=== PATIENT | female | born 1965 | race Native Hawaiian/Other Pacific Islander ===

== ENCOUNTER 2021-05-03 11:39 | Outpatient (REF) | payer OTHER, SELFPAY ==
--- NOTE | ~2021-05-03 | MM_ITS ---
EXAMINATION: MM SCREENING DIGITAL BREAST TOMOSYNTHESIS, BILATERAL CLINICAL INFORMATION: Screening. Asymptomatic. Status post bilateral saline breast implants. The lifetime risk of breast cancer based on the Tyrer-Cuzick Model is 7.8%. COMPARISON: Mammography: March 10, 2020 and studies dating back to December 15, 2013 TECHNIQUE: Digital mammography is performed in craniocaudal and mediolateral oblique views along with computer-aided detection (CAD). Digital breast tomosynthesis is performed in implant-displaced craniocaudal and implant-displaced mediolateral oblique views along with computer-aided detection (CAD). Synthesized 2D images are generated from the tomosynthesis. FINDINGS: The breasts are extremely dense, which lowers the sensitivity of mammography (ACR BI-RADS breast composition Category d). There are no significant masses, abnormal calcifications, or other abnormalities. MM/MM tomosynthesis screen imp BI IMPRESSION: There are no significant changes from prior study. ASSESSMENT: BI-RADS 1: Negative RECOMMENDATION: Routine annual mammography screening. This patient's information was entered into a reminder system with a target due date for their next mammogram.
== END 2021-05-03 11:40 | disposition home or self-care (01) ==
LOC: HO.MAMMO 11:39
PROVIDERS: PCP Internal Medicine; Visit Provider Internal Medicine
DX: Z12.31 Encounter for screening mammogram for malignant neoplasm of breast (principal)
CPT/HCPCS: 77063; 77067

== ENCOUNTER 2021-06-09 15:03 | Emergency (ER) | payer OTHER, SELFPAY ==
--- NOTE | ~2021-06-09 | CT_ITS ---
EXAMINATION: CT ABDOMEN AND PELVIS WITHOUT CONTRAST CLINICAL INFORMATION: Right lower abdominal pain COMPARISON: Previous CT of the abdomen and pelvis December 2013 and pelvic ultrasound most recent from the same date TECHNIQUE: Multidetector volumetric imaging was performed from the superior aspect of the liver through the pubic symphysis. Sagittal and coronal reformatted images were obtained on the technologist's workstation. This CT examination was performed using dose optimization techniques as appropriate, variously including the following: *Automated exposure control *Adjustment of mA and/or kV according to patient size (this includes techniques or standardized protocols for targeted exams where dose is matched to indication/reason for exam; i.e. extremities or head) *Use of iterative reconstruction technique DLP: 289 mGy-cm FINDINGS: LUNG BASES: There is a 3 mm calcified left lower lobe nodule that is stable. The lung bases are otherwise clear. There are bilateral breast implants. LIVER, GALLBLADDER, AND BILIARY TREE: The liver is normal in size, shape, and attenuation. No focal hepatic lesion or biliary ductal dilatation is present. The gallbladder is unremarkable with no evidence of radiopaque gallstones, gallbladder wall thickening, or obvious pericholecystic inflammatory changes. PANCREAS: Unremarkable. SPLEEN: Unremarkable. ADRENAL GLANDS: Unremarkable. KIDNEYS AND URETERS: There is a 1 cm low-attenuation lesion in the anterior right kidney axial image 36 series 3. There is a 1 cm low-attenuation lesion in the upper pole of the left kidney measuring 9 mm axial image 17 series 3. There is a 7 mm low-attenuation lesion in the lower pole of the left kidney axial image 29 series 3. There is a 5 mm low-attenuation lesion exophytic to the lower pole of the left kidney axial image 31 series 3. These likely represent cysts. No imaging follow-up needed. The kidneys are otherwise unremarkable. BLADDER: Unremarkable. GASTROINTESTINAL TRACT: There is stool throughout the colon suggestive of constipation. The small and large bowel is otherwise unremarkable. The base of the appendix is normal in size measuring 6 to 7 mm in diameter and contains air. The tip of the appendix is minimally dilated measuring 9 mm. There is question of fluid seen in the tip of the appendix versus a small amount of fluid adjacent to the tip of the appendix axial image 49 and 50 series 3, coronal reconstructed image 26 and sagittal reconstructed image 58. Early tip appendicitis cannot be excluded and clinical correlation is recommended. ABDOMINAL WALL: No significant hernia is appreciated. LYMPH NODES: There is shotty small bowel mesentery lymphadenopathy. No enlarged lymph nodes are seen. VASCULAR: Unremarkable. PELVIC VISCERA: Unremarkable. An IUD is no longer seen. OSSEOUS STRUCTURES: Unremarkable. CT/CT abdomen pelvis wo con IMPRESSION: Stool throughout the colon suggestive of constipation. The base of the appendix is normal. The tip of the appendix is minimally dilated measuring 9 mm and there is question of fluid in the tip of the appendix versus a small amount of fluid adjacent to the tip of the appendix. Early tip appendicitis cannot be excluded and clinical correlation is recommended. Probable bilateral renal cysts. Stable 3 mm noncalcified left lower lobe pulmonary nodule.
[2021-06-09 15:37] VITALS: BP 121/72; PULSE 88; RESP 16; TEMP 36.8; O2SAT 100; BMI 18.7
--- NOTE | 2021-06-09 18:35 | ED.ABDPAIN ---
HPI - Abdominal Pain General Chief Complaint: Abdominal Pain Stated Complaint: lower abd pain Time Seen by Provider: 06/09/21 18:32 Source: patient Mode of arrival: ambulatory Limitations: no limitations History of Present Illness HPI narrative: 55-year-old female came in for evaluation of right lower abdominal pain and right groin pain and right thigh pain. Symptoms started about 6 weeks ago, symptoms are constant for 6 weeks and progressively getting worse, described it as a dull aching pain localized to the right lower quadrant radiating down to the right groin and right upper thigh area, pain is severe 10 out of 10. Movement or walking make the pain worse, nothing relieving the pain, no other associated symptoms no fever, no chills, no history of trauma. Related Data Home Medications Medication Instructions Recorded Confirmed fluoxetine 20 mg capsule 20 mg PO DAILY 07/22/20 10/01/20 albuterol sulfate 90 mcg/actuation 1 - 2 puff PO Q4-6H PRN 10/01/20 10/01/20 aerosol inhaler Allergies Allergy/AdvReac Type Severity Reaction Status Date / Time latex [LATEX] Allergy Unknown DIFF Verified 10/01/20 10:42 BREATHING peanut Allergy Anaphylaxis Verified 06/09/21 15:40 Review of Systems Review of Systems All other systems are reviewed and are negative Constitutional: Reports as per HPI and Reports no additional constitutional complaints Eyes: Reports as per HPI and Reports no additional eye complaints Reports system reviewed and no additional complaints, except as documented Cardiovascular: Reports as per HPI and Reports no additional cardiovascular complaints Respiratory: Reports as per HPI and Reports no additional respiratory complaints Gastrointestinal: Reports as per HPI and Reports no additional gastrointestinal complaints Genitourinary: Reports no additional female genitourinary complaints Musculoskeletal: Reports no additional musculoskeletal complaints Skin/Breast: Reports system reviewed and no additional complaints, except as docu Psychiatric: Reports no additional psychiatric complaints Endocrine: Reports no additional endocrine complaints Hematologic/Lymphatic: Reports no additional hematologic/lymphatic complaints Allergic/Immunologic: Reports no additional allergic/immunologic complaints Reports system reviewed and no additional complaints, except as documented and Reports Abnormal speech present Physical Exam Vital Signs: Vital Signs: Last Vital Signs Temp 98 F 06/09/21 19:34 Pulse 80 06/09/21 19:34 Resp 18 06/09/21 19:34 BP 138/86 06/09/21 19:34 Pulse Ox 100 06/09/21 19:34 Body Mass Index 18.7 Vital signs have been reviewed as appeared to be correct. Blood pressure normal. Heart rate normal. Respiration rate normal. Temperature normal. Oxygen saturation normal. Appearance: Alert. Oriented X3. No acute distress. Head: Normal external exam. Normocephalic. Atraumatic. No Johnson signs noted. No raccoon eyes noted Eyes: PERRLA. EOMI. Conjunctiva and sclera normal. Eyelids normal. ENT: TM's Normal. Pharynx normal. Uvula midline. Moist mucous membranes. No trismus noted. No drooling noted. No muffled voice noted. Neck: Normal inspection. Neck supple. FROM. No adenopathy. Thyroid Normal. No meningeal signs. No neck mass noted. CVS: Normal heart rate and rhythm. Heart sound normal. No murmurs noted. Pulses normal throughout. Respiratory: No respiratory distress. Painless inspiration. Breath sounds normal. No wheezes/rales/rhonchi noted. Chest nontender. No accessory muscle usage noted or decreased air movement noted. Abdomen: Soft , mild right lower quadrant tenderness no rebound tenderness no guarding. Mild tenderness over iliac ligament, increased pain with moving right leg. sounds normal in all 4 quadrants. No distention noted. No organomegaly noted. No visible injury noted. Back: No CVA tenderness. Full range of motion noted. Skin: Skin warm and dry. Normal skin color. Normal skin turgor. No rashes/lesions/lacerations noted. Extremities: Tenderness over right upper thigh, no palpable mass. Neuro: Oriented X 3. Cranial nerve exam: II-XII are grossly intact No motor deficit. No sensory deficit. Reflexes normal. Course Course Course Narrative: Assessment and plan. 55-year-old female came in with 6 weeks history of right lower quadrant/right inguinal/right upper thigh pain. Physical exam is more consistent with mild right lower quadrant tenderness and tenderness over right illio- inguinal ligament strain. CT cannot rule out acute appendicitis entirely because slight dilatation of the tip of the appendix. CT was discussed and reviewed with Dr. Solorio who agreed on the plan to discharge the patient home and he will see her in the office tomorrow. The plan was discussed with the patient who agreed on the plan. MDM - Abdominal Pain Medical Records Attestation: I reviewed the patient's medical records. Lab Data Attestation: I reviewed the patient's lab results. Result diagrams: 06/09/21 19:02 06/09/21 19:02 Labs: Lab Results 06/09/21 06/09/21 06/09/21 Range/Units 19:02 19:02 19:02 WBC 6.7 (4.8-10.8) X10*3/uL RBC 4.16 L (4.20-5.50) X10*6/uL Hgb 12.6 (12.0-16.0) g/dl Hct 36.7 L (37-47) % MCV 88.2 (80-98) fL MCH 30.3 (27.0-33.0) pg MCHC 34.3 (31.0-35.0) g/dl RDW 12.3 (11.0-16.0) % Plt Count 269 (160-400) X10*3/uL MPV 9.2 L (9.4-12.3) fL Immature Gran % (Auto) 0.1 (0.0-0.4) % Neut % (Auto) 44.3 L (45-73) % Lymph % (Auto) 42.2 H (20-40) % [place] % (Auto) 8.8 (2-11) % Eos % (Auto) 4.5 H (0-4) % Baso % (Auto) 0.1 (0-2) % Lymph # (Auto) 2.8 (1.2-4.9) X10*3/uL [place] # (Auto) 0.6 (0.1-1.2) X10*3/uL Eos # (Auto) 0.3 (0.0-0.4) X10*3/uL Baso # (Auto) 0.0 (0.0-0.2) X10*3/uL Abs Immat Gran (auto) 0.01 (0.00-0.03) X10*3/uL Absolute Neuts (auto) 3.0 (2.0-8.3) X10*3/uL Absolute Nucleated RBC 0.000 (0.0-0.012) X10*3/uL Nucleated RBC % (auto) 0.0 (0.0-0.2) /100WBC D-Dimer < 200 NG/ML Sodium 140 (135-145) mmol/L Potassium 4.1 (3.3-5.1) mmol/L Chloride 106 (96-108) mmol/L Carbon Dioxide 28 (22-29) mmol/L Anion Gap 10 L (12-20) BUN 15 (9-16) mg/dL Creatinine 0.79 (0.5-1.4) mg/dL Estim Creat Clear Calc 64.3 Estimated GFR > 60 Random Glucose 106 (60-115) mg/dL Calcium 9.4 (8.4-10.2) mg/dL Total Bilirubin 0.3 (0.0-1.0) mg/dL Direct Bilirubin < 0.2 (0.0-0.5) mg/dL AST 16 (5-31) U/L ALT 9 (0-31) U/L Alkaline Phosphatase 60 (39-117) U/L Total Creatine Kinase 70 (26-140) U/L Total Protein 6.8 (6.5-8.0) g/dL Albumin 3.9 (3.5-5.0) g/dL Lipase 54 (8-78) U/L Urine Color Urine Appearance Urine pH (5.0-8.0) Ur Specific [place] (1.005-1.025) Urine Protein (NEG-TRACE) MG/DL Urine Glucose (UA) (NEG) MG/DL Urine Ketones (NEG) MG/DL Urine Blood (NEG) Urine Nitrite (NEG) Ur Leukocyte Esterase (NEG) 06/09/21 Range/Units 19:36 WBC (4.8-10.8) X10*3/uL RBC (4.20-5.50) X10*6/uL Hgb (12.0-16.0) g/dl Hct (37-47) % MCV (80-98) fL MCH (27.0-33.0) pg MCHC (31.0-35.0) g/dl RDW (11.0-16.0) % Plt Count (160-400) X10*3/uL MPV (9.4-12.3) fL Immature Gran % (Auto) (0.0-0.4) % Neut % (Auto) (45-73) % Lymph % (Auto) (20-40) % [place] % (Auto) (2-11) % Eos % (Auto) (0-4) % Baso % (Auto) (0-2) % Lymph # (Auto) (1.2-4.9) X10*3/uL [place] # (Auto) (0.1-1.2) X10*3/uL Eos # (Auto) (0.0-0.4) X10*3/uL Baso # (Auto) (0.0-0.2) X10*3/uL Abs Immat Gran (auto) (0.00-0.03) X10*3/uL Absolute Neuts (auto) (2.0-8.3) X10*3/uL Absolute Nucleated RBC (0.0-0.012) X10*3/uL Nucleated RBC % (auto) (0.0-0.2) /100WBC D-Dimer NG/ML Sodium (135-145) mmol/L Potassium (3.3-5.1) mmol/L Chloride (96-108) mmol/L Carbon Dioxide (22-29) mmol/L Anion Gap (12-20) BUN (9-16) mg/dL Creatinine (0.5-1.4) mg/dL Estim Creat Clear Calc Estimated GFR Random Glucose (60-115) mg/dL Calcium (8.4-10.2) mg/dL Total Bilirubin (0.0-1.0) mg/dL Direct Bilirubin (0.0-0.5) mg/dL AST (5-31) U/L ALT (0-31) U/L Alkaline Phosphatase (39-117) U/L Total Creatine Kinase (26-140) U/L Total Protein (6.5-8.0) g/dL Albumin (3.5-5.0) g/dL Lipase (8-78) U/L Urine Color YELLOW Urine Appearance HAZY Urine pH 7.0 (5.0-8.0) Ur Specific [place] 1.015 (1.005-1.025) Urine Protein NEG (NEG-TRACE) MG/DL Urine Glucose (UA) NEG (NEG) MG/DL Urine Ketones NEG (NEG) MG/DL Urine Blood NEG (NEG) Urine Nitrite NEG (NEG) Ur Leukocyte Esterase NEG (NEG) Imaging Data CT scan - abdomen: Radiologist's impression: Stool throughout the colon suggestive of constipation. The base of the appendix is normal. The tip of the appendix is minimally dilated measuring 9 mm and there is question of fluid in the tip of the appendix versus a small amount of fluid adjacent to the tip of the appendix. Early tip appendicitis cannot be excluded and clinical correlation is recommended. Probable bilateral renal cysts. Stable 3 mm noncalcified left lower lobe pulmonary nodule. .? Discharge Plan Discharge Clinical Impression: Abdominal pain Qualifiers: Abdominal location: right lower quadrant Qualified Code(s): R10.31 - Right lower quadrant pain Ilio-inguinal strain Qualifiers: Encounter type: initial encounter Qualified Code(s): S39.011A - Strain of muscle, fascia and tendon of abdomen, initial encounter Patient Disposition: Home, Self-Care Instructions: Muscle Strain (ED), Abdominal Pain (ED) Prescriptions: No Action albuterol sulfate 90 mcg/actuation HFA aerosol inhaler 1 - 2 puff PO Q4-6H PRN (Reason: dyspnea) RF: 0 fluoxetine 20 mg capsule 20 mg PO DAILY RF: 0 Referrals: Mukund Neal MD [Primary Care Provider] - 2 days Jc Solorio MD [Physician] - 1 day Stand Alone Forms: Work/School Release [facility] Past Medical History Medical History Anxiety Surgical History No pertinent past surgical history Family History Family History Father No problems noted. Mother No problems noted. Social History Social History Alcohol intake: never Advance Directives: No Advance Directives Information Provided: No Patient : No
[2021-06-09 19:10] LABS: MANUAL DIFF FLAG NO
[2021-06-09 19:11] LABS: Basophils Percent Auto 0.1 % (0-2); Eosinophils Absolute Auto 0.3 X10*3/uL (0.0-0.4); Eosinophils Percent Auto 4.5 % (0-4); Hematocrit 36.7 % (37-47); Hemoglobin 12.6 g/dl (12.0-16.0); Imm Gran Abs Auto 0.01 X10*3/uL (0.00-0.03); Imm Gran Pct Auto 0.1 % (0.0-0.4); Lymphocytes Absolute Auto 2.8 X10*3/uL (1.2-4.9); Lymphocytes Percent Auto 42.2 % (20-40); Mean Corpuscular HGB Conc 34.3 g/dl (31.0-35.0); Mean Corpuscular Hemoglobin 30.3 pg (27.0-33.0); Mean Corpuscular Volume 88.2 fL (80-98); Mean Platelet Volume 9.2 fL (9.4-12.3); Monocytes Absolute Auto 0.6 X10*3/uL (0.1-1.2); Monocytes Percent Auto 8.8 % (2-11); Neutrophils Percent Auto 44.3 % (45-73); Platelet Count 269 X10*3/uL (160-400); Red Blood Count 4.16 X10*6/uL (4.20-5.50); Red Cell Distribution Width 12.3 % (11.0-16.0); White Blood Count 6.7 X10*3/uL (4.8-10.8)
[2021-06-09 19:20] LABS: D Dimer < 200 NG/ML
[2021-06-09 19:28] LABS: Alanine Aminotransferase 9 U/L (0-31); Albumin Level 3.9 g/dL (3.5-5.0); Alkaline Phosphatase 60 U/L (39-117); Anion Gap 10 (12-20); Aspartate Amino Transferase 16 U/L (5-31); Bilirubin Direct < 0.2 mg/dL (0.0-0.5); Bilirubin Total 0.3 mg/dL (0.0-1.0); Blood Urea Nitrogen 15 mg/dL (9-16); Calcium 9.4 mg/dL (8.4-10.2); Carbon Dioxide 28 mmol/L (22-29); Chloride 106 mmol/L (96-108); Creatinine Clr Calc Pharmacy 64.3; Estimated Glomerular Filt Rate > 60; Glucose Random 106 mg/dL (60-115); Lipase 54 U/L (8-78); Potassium 4.1 mmol/L (3.3-5.1); Sodium 140 mmol/L (135-145); Total Protein 6.8 g/dL (6.5-8.0)
[2021-06-09 19:34] VITALS: BP 138/86; PULSE 80; RESP 18; TEMP 36.6; O2SAT 100
[2021-06-09 19:48] LABS: Appearance Urine HAZY; Color Urine YELLOW; Glucose Urine UA NEG (NEG); Leukocyte Esterase Urine NEG (NEG); Nitrite Urine NEG (NEG); Specific Gravity - Urine 1.015 (1.005-1.025); Urine Blood NEG (NEG); Urine Ketones NEG (NEG); Urine Protein NEG (NEG-TRACE)
== END 2021-06-09 21:04 | disposition home or self-care (01) ==
PROVIDERS: Emergency Provider Emergency Medicine; PCP Family Medicine
DX: S39.011A Strain of muscle, fascia and tendon of abdomen, initial encounter (principal); R10.31 Right lower quadrant pain; X58.XXXA Exposure to other specified factors, initial encounter; Y93.9 Activity, unspecified; Y92.9 Unspecified place or not applicable; Y99.9 Unspecified external cause status; Z79.899 Other long term (current) drug therapy
CPT/HCPCS: 36415; 74176; 80048; 80076; 81003; 82550; 83690; 85025; 85379; 99283; 99284

== ENCOUNTER → 2021-06-10 10:36 | Outpatient (BNVA) | payer OTHER, SELFPAY | PROVIDERS: PCP Family Medicine; Visit Provider Surgery ==

== ENCOUNTER 2021-06-24 11:44 | Outpatient (RCR) | payer OTHER, SELFPAY ==
--- NOTE | 2021-06-24 13:47 | MHC.PT.EP ---
[facility] [place] Office [place] Office [place] Office [address] Dale James [address] [phone] F: [phone] F: [phone] F: [phone] F: [phone] Physical Therapy Plan of Care Date of Evaluation: Date of Surgery: Diagnosis: Unspecified injury of abdomen, initial encounter Assessment: Pt is a pleasant 55yo F who presents to PT with R groin/thigh pain. She injured her leg while attempting to prevent a fall at work by slowly lowering a pt down her R leg to the floor. Her pain has improved some over the past few weeks however she presents today with current impairments in pain, decreased quad/hamstring/hip/glute strength, soft tissue restrictions throughout R quad, balance, and gait. She is limited functionally by getting in/out of the tub, prolonged walking, sitting to standing, and stair navigation. Her signs and symptoms may be consistent with a R quad strain. She is an excellent candidate for skilled PT services to address current impairments in order to facilitate return to OF. She will be seen 1x/week for 5 weeks and will be reassessed at that time. Frequency and Duration: The patient will be seen 1x/week for 5 weeks Short Term Goals: Pt will be I with HEP to promote self management of symptoms Pt will improve R hamstring to [employer] W[employer] Goals: Pt will improve R quad strength by at least 1 grade to assist with stair navigation Pt will ascend/descend 1 flight of stairs with reciprocal gait pattern with pain < 2 / 10 Pt will demonstrate improvements in functional mobility as evidenced by statistically significant improvement in LEFI outcome measure Treatment Plan: Modalities to reduce pain, spasms and effusion. Manual therapy to restore motion and function. Therapeutic exercise to improve strength and flexibility. Neuromuscular re-education for posture and balance. Therapeutic activities to return to functional activities of daily living. Electronically signed by: Merary Nguyen, PT, DPT Please sign and return to therapist. Thank you for your referral.
--- NOTE | 2021-07-26 12:50 | MHC.PT.DC ---
[facility] [place] Office [place] Office [place] Office [address] Dale James [address] [phone] F: [phone] F: [phone] F: [phone] F: [phone] Physical Therapy Discharge Report Diagnosis: Unspecified injury of abdomen, initial encounter Date of Surgery: Date of Evaluation: 06/24/21 Date of Discharge: 07/26/21 Treatments to Date: 1 Cancellations to Date: 2 No Shows to Date: Discharge Status: Patient Elected to Stop Discharge Summary: Pt was evaluated on 06/24/21. She cancelled her remaining appointments and self discharged from PT as she report she is feeling good and is continuing her HEP from initial PT evaluation. Pt is being D/C from skilled PT services at this time. Pt current level of function unknown at this time. Electronically signed by: Merary Nguyen, PT, DPT Please sign and return to therapist. Thank you for your referral.
== END 2021-07-26 12:50 | disposition home or self-care (01) ==
LOC: HO.PT 11:44
PROVIDERS: PCP Internal Medicine; Visit Provider Internal Medicine
DX: S39.91XD Unspecified injury of abdomen, subsequent encounter (principal)
CPT/HCPCS: 97110; 97161

== ENCOUNTER 2023-01-08 12:06 | Outpatient (REF) | payer OTHER, SELFPAY ==
--- NOTE | ~2023-01-08 | XR_ITS ---
EXAMINATION: XR FINGER, LEFT CLINICAL INFORMATION: Pain COMPARISON: None available. TECHNIQUE: Three views of the left fifth finger. FINDINGS: The bones and soft tissues are normal. No fracture. Alignment is anatomic. Joint spaces are maintained. XR/XR finger LT min 2V IMPRESSION: Normal finger radiographs.
== END 2023-01-08 12:07 | disposition home or self-care (01) ==
LOC: HO.HMGCLDS 12:06
PROVIDERS: PCP Internal Medicine; Visit Provider Nurse Practitioner Family
DX: M79.645 Pain in left finger(s) (principal)
CPT/HCPCS: 73140

== ENCOUNTER → 2023-01-16 14:38 | Outpatient (BNVA) | payer OTHER, SELFPAY | PROVIDERS: PCP Internal Medicine; Visit Provider Orthopaedic Surgery ==

== ENCOUNTER → 2023-02-14 12:30 | Outpatient (BNVA) | payer OTHER, SELFPAY | PROVIDERS: PCP Internal Medicine; Visit Provider Orthopaedic Surgery ==

== ENCOUNTER 2023-03-07 13:19 | Outpatient (AMB) | payer OTHER, SELFPAY ==
--- NOTE | 2023-03-07 13:24 | MHC.PC.OV ---
Vital Signs 03/07/23 13:25 Height 5 ft 4.5 in Weight 113 lb 6 oz BMI 19.2 BP 110/76 Blood Pressure Location Lt brachial Position Sitting Pulse 78 Pulse Source Pulse Oximeter Pulse Oximetry (%) 98 Oxygen Delivery Method Room Air Intake Visit Reasons: ringing in ear Intake Note: Patient is here today for ringing and echo in right ear. 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 Accompanied by: Self / Same As Patient Allergies latex [LATEX] Allergy (Unknown, Verified 03/07/23 13:25) DIFF BREATHING Medication List - Last Reconciled 03/07/23 by Neto Bhandari MD albuterol sulfate 2.5 mg (3 mL) inhalation Q4-6H PRN miscellaneous medical supply 2 ea miscellaneous .QIS Tobacco use date assessed: 03/07/23 Dental Screening Dental Screen Date: 03/07/23 Did you have a dental visit in the last 12 months?: No Did you have a dental problem in the last 6 months where you did not have access to dental care?: No Was dental information given to patient?: Patient has dentist HPI ringing in ear HPI Details bilat ear pain for a week [facility] Medical History Anxiety Right lower quadrant pain Surgical History No pertinent past surgical history Family History Father No problems noted. Mother No problems noted. 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 Bryan Marx, Ann Calero, Ankur Kaur and colleagues, with an educational faby from [employer]. Review of Systems Const Denies chills, Denies headache(s) and Denies weight loss ENT Denies headache(s) Card Denies chest pain, Denies syncope, Denies irregular heart rhythm and Denies dyspnea Resp Denies chest congestion, Denies cough and Denies dyspnea GI Denies abdominal pain, Denies change in stool character, Denies nausea and Denies vomiting Musc Denies deformity and Denies joint swelling Neuro Denies syncope and Denies headache(s) Physical exam (Primary Care) Vital Signs: Last Vital Signs Pulse 78 03/07/23 13:25 BP 110/76 03/07/23 13:25 Pulse Ox 98 03/07/23 13:25 Oxygen Delivery Method Room Air 03/07/23 13:25 BMI result Body Mass Index 19.2 Tobacco/Smoking Status: Tobacco use Status Tobacco use date assessed 03/07/23 03/07/23 13:29 Patient Tobacco Use Status Never used Tobacco 03/07/23 13:29 e-Cigarette/Vaping Use Never Used 03/07/23 13:29 Thrive Assessment: Date of Thrive Assessment Date Thrive assessed 08/30/22 03/07/23 13:29 Const General: cooperative, healthy appearing and no acute distress HENMT Head: Yes normal to inspection Ears: hearing grossly normal bilaterally, external ears normal and TM's normal bilaterally Eyes General: appearance normal, both eyes and all related structures Neck Neck: Yes normal visual inspection Assessment and Plan Assessment & Plan (1) Otalgia of both ears: Code(s): H92.03 - Otalgia, bilateral Plan: rx Medications: New azithromycin take 500 mg today (day 1), then 250 mg for 4 days (days 2-5) PO 6 tabs 0RF Coding Level of Care Code Est Pt Level 3 (50906) Diagnoses Otalgia of both ears H92.03
[2023-03-07 13:25] VITALS: BP 110/76; PULSE 78; O2SAT 98; BMI 19.2
== END 2023-03-07 13:34 | disposition home or self-care (01) ==
PROVIDERS: PCP Internal Medicine; Visit Provider Internal Medicine
DX: H92.03 Otalgia, bilateral (principal)
CPT/HCPCS: 99213

== ENCOUNTER 2023-04-10 09:25 | Outpatient (AMB) | payer OTHER, SELFPAY ==
--- NOTE | 2023-04-10 09:50 | A.OFFVIS_ITS ---
Intake Vital Signs 04/10/23 09:51 Height 5 ft 4.5 in Weight 113 lb BMI 19.1 Intake Visit Reasons: OV-LT 4th finger ruptured distal extensor tendon Intake Note: Tejal 57 yr old female presents today for her follow up visit for her Left Small finger mallet deformity DOI: 01/08/23. Patient states she no longer has pain just stiffness in the pinky DIP joint. Allergies latex [LATEX] Allergy (Unknown, Verified 04/10/23 09:52) DIFF BREATHING HPI OV-LT 4th finger ruptured distal extensor tendon HPI Details Tejal is a 57 year old right hand dominant woman who returns for a follow-up of her left small finger mallet deformity, DOI: 01/08/23. She presents today saying she no longer has any pain in her small finger. She does continue to have stiffness in her small finger. She says she has been wearing her splint most of the time for the last 3 months. 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 [facility] Medical History Anxiety Right lower quadrant pain Surgical History No pertinent past surgical history Family History Father No problems noted. Mother No problems noted. Social History Housing: Apartment Alcohol intake: never Patient Tobacco Use Status: Never used Tobacco e-Cigarette/Vaping Use: Never Used Second Hand Smoke Exposure: No service: No Current occupational status: employed Current occupation: [employer] Current occupational exposures/hazards: No Cognitive needs: No Hearing needs: No Vision needs: Yes (glasses) Review of Systems Const All systems reviewed & are unremarkable except as noted in HPI and below Physical Exam Vital Signs: BMI result Body Mass Index 19.1 Const General: cooperative, healthy appearing and no acute distress Orientation/consciousness: patient oriented x3 HEENT Head: Yes normocephalic and Yes atraumatic Eyes EOM: EOMs intact bilaterally Resp Effort & Inspection: normal respiratory effort and able to speak in complete sentences Cardio Jugular venous distension: no JVD Skin General skin exam: turgor normal Rashes: no rashes Neuro General: patient oriented x3 Extrem Other: Evaluation of Left Upper Extremity: The patient is alert, oriented, and in no acute distress Neuro: Median, Ulnar, Radial nerves motor and sensory intact and sensation is normal to the tips of all digits Vascular: Cap refill brisk ROM: She has some small finger PIP joint stiffness, initially she only had ~75 degrees of flexion of the small finger PIP joint compared to ~120 degrees flexion at ring finger PIP joint We worked on ROM exercises today in clinic, before leaving she could bring the tip of her finger to her palm I instructed her to not push across the DIP joint for now Good MCP joint flexion DIP joint non-tender, full extension She was able to demonstrate some active DIP joint flexion Psych Appearance: grossly normal Affect: normal affect Attitude: cooperative Assessment & Plan Assessment & Plan (1) 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 Left Small finger mallet deformity DOI: 01/08/23 I educated her about this condition. She appears to be doing well She has been managing this with splinting since her appointment on 01/16/23 She will discontinue her finger splint at this time She will work on gentle finger ROM exercises at home, primarily of the small finger PIP joint. I demonstrated exercises today in clinic for her to perform She should perform these 20x daily. I instructed her to not push across the DIP joint for now If she has difficulty with her ROM she may contact the clinic for a referral to OT hand therapy She can follow up prn Scribed for Chioma Mitchell MD by [facility], on 04/10/23 at 10:20 AM, EST. 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
[2023-04-10 09:51] VITALS: BMI 19.1
== END 2023-04-10 10:28 | disposition home or self-care (01) ==
PROVIDERS: PCP Internal Medicine; Visit Provider Orthopaedic Surgery
DX: M20.012 Mallet finger of left finger(s) (principal)
CPT/HCPCS: 99213

== ENCOUNTER → 2023-04-10 09:25 | Outpatient (BNVA) | payer OTHER, SELFPAY | PROVIDERS: PCP Internal Medicine; Visit Provider Orthopaedic Surgery ==

== ENCOUNTER 2023-11-07 15:02 | Outpatient (AMB) | payer OTHER, SELFPAY ==
--- NOTE | 2023-11-07 15:07 | MHC.OFFWIV ---
Intake Vital Signs 11/07/23 15:08 Height 5 ft 4.5 in Weight 119 lb BMI 20.1 BP 102/70 Blood Pressure Location Rt brachial Position Sitting Pulse 87 Pulse Source Pulse Oximeter Temp 97.7 F Temp Source Oral Pulse Oximetry (%) 99 Oxygen Delivery Method Room Air Intake Visit Reasons: EP Tick bite Intake Note: pt says she has a bug bite on her left calf and she thinks it may have happened today and it still may be in her leg pt denies any pain or itchy pt says she had a headache and nausea yesterday Patient Tobacco Use Status: Never used Tobacco Allergies latex [LATEX] Allergy (Unknown, Verified 11/07/23 15:27) DIFF BREATHING Medication List - Last Reconciled 11/07/23 by Thee Clinton MD albuterol sulfate 2.5 mg (3 mL) inhalation Q4-6H PRN miscellaneous medical supply 2 ea miscellaneous .QIDHS Do you need a note to return to daycare/school/sports/work: Yes HPI EP Tick bite HPI Details 58 yr old female presents to the office for a sick visit. Patient had a spot on the left leg that she would liked examined. She is nervous that it could be a tick bite. She did not see the tick, noticed the spot this morning. [facility] Medical History Anxiety Right lower quadrant pain Surgical History No pertinent past surgical history Family History Father No problems noted. Mother No problems noted. 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 No erythema or redness. No evidence of break of skin. Assessment & Plan Assessment & Plan (1) Rash: Code(s): R21 - Rash and other nonspecific skin eruption Plan: Reassured patient, it does not look like a tick bite. Coding Level of Care Code Est Pt Level 3 (02109) Diagnoses Rash R21
[2023-11-07 15:08] VITALS: BP 102/70; PULSE 87; TEMP 36.5; O2SAT 99; BMI 20.1
== END 2023-11-07 15:30 | disposition home or self-care (01) ==
PROVIDERS: PCP Internal Medicine; Visit Provider Internal Medicine
DX: R21 Rash and other nonspecific skin eruption (principal)
CPT/HCPCS: 99213

== ENCOUNTER 2023-12-24 20:44 | Observation (INO) | payer OTHER, SELFPAY ==
--- NOTE | ~2023-12-24 | CT_ITS ---
EXAMINATION: CT ANGIOGRAM NECK AND HEAD CLINICAL INFORMATION: Dizziness, headache COMPARISON: None. TECHNIQUE: Initial noncontrast head CT was performed. Test bolus sequences followed by intravenous administration 70 mL of Omnipaque 350. Helical imaging was performed in the axial plane from the thoracic inlet to the skull vertex. Delayed postcontrast imaging of the head was also performed. The data was processed at the engineering technologist's workstation for generation of MIP sequences. Angled MIPs and volume rendered reformatted images were also generated at an offline 3D workstation. Stenoses are assessed in accordance with NASCET criteria unless otherwise indicated. DOSE LOWERING TECHNIQUES: This CT examination was performed using dose optimization techniques as appropriate, variously including the following: - Automated exposure control - Adjustment of mA and/or kV according to patient size (this includes techniques or standardized protocols for targeted exams were dose is matched to indication/reason for exam; i.e. extremities or head) - Use of iterative reconstruction technique DLP: 2753 mGy-cm FINDINGS: Neck CTA: There is a classic 3 vessel branching pattern of the aortic arch. Normal appearance of the visualized aortic arch and proximal branches. No evidence of stenosis at the branch origins. Both vertebral arteries are widely patent throughout their extracranial cervical course. Normal appearance of the common and internal carotid arteries without focal stenosis. Brain CTA: Normal appearance of the intradural vertebral arteries. Normal appearance of the basilar artery. origin of the right posterior cerebral artery. Normal opacification of the posterior cerebral arteries bilaterally. Normal appearance of the intradural internal carotid arteries without focal stenosis. Normal appearance of the anterior cerebral and middle cerebral arteries without focal occlusion or stenosis. Normal anterior communicating artery. Normal arborization of the middle cerebral arteries. CT Head: No intracranial mass, hemorrhage, extra-axial collection, or midline shift. The messina-white matter differentiation is preserved. No pathologic intra-axial enhancement or regional oligemia. No hydrocephalus. Cavum septum pellucidum et vergae noted. The mastoid air cells and paranasal sinuses remain well aerated. CT Neck: The thyroid gland appears mildly prominent and heterogeneous, nonspecific. Remaining cervical soft tissues are normal in appearance. There is degenerative change at the atlantodens articulation. No acute cervical spine abnormalities demonstrated. Upper Chest: No abnormalities in the visualized lung apices or upper mediastinum. CT/CT angio head neck IMPRESSION: 1. No acute intracranial findings. 2. No hemodynamically significant stenosis in the major arteries of the neck. No large vessel occlusion or significant stenosis in the intracranial circulation.
--- NOTE | ~2023-12-24 | MR_ITS ---
EXAMINATION: MR BRAIN WITHOUT CONTRAST CLINICAL INFORMATION: Question posterior stroke. Persistent dizziness. COMPARISON: Head CT from 12/25/2023. TECHNIQUE: Multiplanar, multisequence imaging of the brain was performed without contrast. FINDINGS: No diffusion abnormalities are identified to suggest an acute infarct. The ventricles are normal in size. No mass effect or midline shift is seen. Minimal scattered bifrontal white matter signal changes are nonspecific. No extra-axial fluid collections are seen. The brainstem and cerebellum are normal. The gradient refocused acquisition is normal. The craniovertebral junction, marrow signal, and midline structures are normal. The major intracranial flow voids at the level of the [place] of Alfredo are preserved. 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 The dural venous sinus flow voids are maintained. The mastoid air cells and paranasal sinuses are fairly well aerated. Incidental mild degenerative changes in the left temporomandibular joint visible. MR/MR head/brain wo con IMPRESSION: Minimal bifrontal white matter signal changes of indeterminate clinical significance. No acute intracranial process. 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 Recommend nonemergent follow-up neurointerventional radiology or neurosurgical consultation guide further management.
--- NOTE | 2023-12-24 20:46 | ECG_ITS ---
Test Reason : CHEST PAIN Blood Pressure : / mmHG Vent. Rate : 090 BPM Atrial Rate : 090 BPM P-R Int : 152 ms QRS Dur : 076 ms QT Int : 344 ms P-R-T Axes : 058 053 069 degrees QTc Int : 420 ms Normal sinus rhythm Septal infarct , age undetermined Abnormal ECG No previous ECGs available Referred By: Generic ED Physician Electronically Signed By:Gonsalo Hoff
[2023-12-24 21:00] VITALS: BP 190/109; PULSE 94; RESP 18; TEMP 36.2; O2SAT 100; BMI 19.7
[2023-12-24 21:34] LABS: MANUAL DIFF FLAG NO
[2023-12-24 21:37] LABS: Basophils Percent Auto 0.1 % (0-2); Eosinophils Absolute Auto 0.3 X10*3/uL (0.0-0.4); Eosinophils Percent Auto 3.6 % (0-4); Hematocrit 38.3 % (37.0-47.0); Hemoglobin 13.3 g/dl (12.0-16.0); Imm Gran Abs Auto 0.02 X10*3/uL (0.00-0.03); Imm Gran Pct Auto 0.3 % (0.0-0.4); Lymphocytes Absolute Auto 2.4 X10*3/uL (1.2-4.9); Lymphocytes Percent Auto 33.3 % (20-40); Mean Corpuscular HGB Conc 34.7 g/dl (31.0-35.0); Mean Corpuscular Hemoglobin 30.1 pg (27.0-33.0); Mean Corpuscular Volume 86.7 fL (80.0-98.0); Mean Platelet Volume 8.9 fL (9.4-12.3); Monocytes Absolute Auto 0.6 X10*3/uL (0.1-1.2); Monocytes Percent Auto 7.5 % (2-11); Neutrophils Percent Auto 55.2 % (45-73); Platelet Count 301 X10*3/uL (160-400); Red Blood Count 4.42 X10*6/uL (4.20-5.50); Red Cell Distribution Width 12.3 % (11.0-16.0); White Blood Count 7.3 X10*3/uL (4.8-10.8)
[2023-12-24 21:52] LABS: Alanine Aminotransferase 13 U/L (0-31); Albumin Level 4.3 g/dL (3.5-5.0); Alkaline Phosphatase 66 U/L (39-117); Anion Gap 15 (12-20); Aspartate Amino Transferase 18 U/L (5-31); Bilirubin Total 0.2 mg/dL (0.0-1.0); Blood Urea Nitrogen 11 mg/dL (9-16); Calcium 10.4 mg/dL (8.4-10.2); Carbon Dioxide 23 mmol/L (22-29); Chloride 104 mmol/L (96-108); Estimated Glomerular Filt Rate > 60; Glucose Random 115 mg/dL (60-115); Potassium 4.1 mmol/L (3.3-5.1); Sodium 138 mmol/L (135-145); Total Protein 7.7 g/dL (6.5-8.0)
[2023-12-24 22:00] LABS: Troponin-I High Sensitivity < 2.7 ng/L (<3.5-17.0)
[2023-12-25] VITALS (10 sets, daily range): BP systolic 116–170; BP diastolic 65–98; PULSE 75–92; RESP 12–22; TEMP 36.4–37.1; O2SAT 96–100
--- NOTE | 2023-12-25 01:54 | ED.CHESTPAIN ---
HPI - Chest Pain General Chief Complaint: Chest Pain Stated Complaint: chest pain dizziness Time Seen by Provider: 12/25/23 01:53 Source: patient and family Mode of arrival: ambulatory Limitations: no limitations History of Present Illness HPI narrative: 58 yo female with PMH of anxiety, depression, asthma here with c/o being at work around 8pm she started to feel chest pains dizziness and lightheaded with shortness of breath, no nausea or vomiting. She notes she has no vision changes, numbness, weakness. She feels off balance at rest and with exertion. She usually has low BP and today it has been up to 180s - the only thing unusual today is that she got her allergy shots but she has not had issues in the past. She has had neck pain on L side for the past two days no trauma no neck manipulations. MD complaint: chest pain (dizziness) Onset (ago): hour(s) (8pm) Timing of current episode: constant Prior episodes: No Onset: during rest Pain location: substernal Pain radiation: none Severity: moderate Quality: tightness Relieving factors: nothing Exacerbating factors: nothing Associated symptoms: other (dizziness) Treatment prior to arrival: none Related Data Previous Rx's ?Medication ?Instructions ?Recorded albuterol sulfate 2.5 mg/3 mL 2.5 mg (3 mL) inhalation Q4-6H PRN 09/08/21 (0.083 %) solution for nebulization bronchospasm #90 mL miscellaneous medical supply 2 ea miscellaneous .[facility] #500 ea 01/23/22 Allergies Allergy/AdvReac Type Severity Reaction Status Date / Time latex [LATEX] Allergy Unknown DIFF Verified 12/24/23 21:02 BREATHING Review of Systems Review of Systems: Constitutional : No Fever, No Chills, No Fatigue ENT/Mouth : No sore throat, No Rhinorrhea Eyes: No Eye Pain, No Swelling, No Redness Cardiovascular : pos Chest Pain, No SOB, No Dyspnea on Exertion Respiratory : No Cough, No Sputum Gastrointestinal : No Nausea, No Vomiting, No Diarrhea, No abdominal Pain Genitourinary : No Dysuria, No Urinary Frequency, No Hematuria, Musculoskeletal : No joint pain, No Myalgias, No Joint Swelling, pos neck pain Skin : No Skin Lesions, No rash Neuro : No Weakness, No Numbness, pos Dizziness, positive Headache Psych : No Anxiety/Panic, No Depression Heme/Lymph: No Bruising, No Bleeding,No Lymphadenopathy Endocrine : No Polyuria, No Polydipsia All other systems reviewed and are negative [facility] Past Medical History Attestation statement: The following information was validated with the patient. Source: old records reviewed Medical History Right lower quadrant pain Anxiety Surgical History No pertinent past surgical history Family History Family History Father No problems noted. Mother No problems noted. 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 Oriented X3. No acute distress. Eyes: Pupils equal, round and reactive to light. No nystagmus ENT: Pharynx normal. TMs normal Neck: Normal inspection. Neck supple. CVS: Normal heart rate and rhythm. Pulses normal. Respiratory: No respiratory distress. Breath sounds normal. Abdomen: Soft and nontender. Skin: Skin warm and dry. Normal skin color. Normal skin turgor. Extremities: No lower extremity edema. No calf ttp Neuro: Oriented X 3. No motor deficit. No sensory deficit. normal rapid alternating movements, normal finger to nose testing NIH Stroke Scale Internal: Initial- Upon Arrival Level of Consciousness: Alert Level of Consciousness Questions: Answers both questions correctly Level of Consciousness Commands: Performs both tasks correctly Best Gaze: Normal Visual: No visual loss Facial Palsy: Normal Motor Arm (Right): No drift Motor Arm (Left): No drift Motor Leg (Right): No drift Motor Leg (Left): No drift Limb Ataxia: Present in one limb Sensory: Normal Best Language: No aphasia Dysarthia: Normal Extinction and Inattention: No abnormality Score: 1 Course Course Course Narrative: BP is loopy and confused post ativan but that was 2 hours ago still unable to ambulate will admit Medications Administered Discontinued Medications Generic Name Dose Route Start Last Admin Trade Name Freq PRN Reason Stop Dose Admin Sodium Chloride 1,000 mls @ 999 mls/hr 12/25/23 02:15 12/25/23 02:26 Ns IV 12/25/23 03:15 999 mls/hr .Q1H1M YOMAIRA Administration Iohexol 70 ml 12/25/23 03:15 12/25/23 03:15 Iohexol 350 Mg/Ml 100 Ml Infus..Btl IV 12/25/23 03:16 70 ml ONCE ONE Administration Lorazepam 1 mg 12/25/23 02:04 12/25/23 02:26 Lorazepam 2 Mg/Ml Vial IVPUSH 12/25/23 02:05 1 mg STAT STA Administration Medical Decision Making Medical Decision Making [facility] Narrative: 58 yo female with PMH of anxiety, depression, asthma here with c/o neck pain x 2 days now with dizziness and feeling off balance with HTN at this time presents to me 6 hours after the fact has no focal deficits on exam but does feel off balance and cannot ambulate without assistance she has unsteady gait. I am going to order labs, EKG trop x 2, IVF, ativan, CTA of head and neck for possible stroke/dissection given neck pain. Chest pain atypical for ACS has no hypoxia or tachycardia risk factors for VTE. If CTA negative may need admission for MRI. Differential Diagnosis Differential Diagnoses: The differential diagnosis associated with the presentation includes dizziness, HTN, anxiety, posterior stroke out of window onset 8pm - presents 6 hours after the fact, atypical chest pain - no hypoxia tachycardia doubt VTE trop flat x 2 Admission/Observation Consideration of admission/observation: Escalation of care including admission/observation considered will admit for dizziness Consult Healthcare Provider Management of the patient was discussed with: Hospitalist (will admit) Lab Data MDM Lab Attestation statement: I reviewed the patient's lab results. 12/24/23 21:17 12/24/23 21:17 Labs: Lab Results 12/24/23 12/25/23 12/25/23 Range/Units 21:17 01:56 02:31 WBC 7.3 (4.8-10.8) X10*3/uL RBC 4.42 (4.20-5.50) X10*6/uL Hgb 13.3 (12.0-16.0) g/dl Hct 38.3 (37.0-47.0) % MCV 86.7 (80.0-98.0) fL MCH 30.1 (27.0-33.0) pg MCHC 34.7 (31.0-35.0) g/dl RDW 12.3 (11.0-16.0) % Plt Count 301 (160-400) X10*3/uL MPV 8.9 L (9.4-12.3) fL Immature Gran % (Auto) 0.3 (0.0-0.4) % Neut % (Auto) 55.2 (45-73) % Lymph % (Auto) 33.3 (20-40) % Crowley % (Auto) 7.5 (2-11) % Eos % (Auto) 3.6 (0-4) % Baso % (Auto) 0.1 (0-2) % Lymph # (Auto) 2.4 (1.2-4.9) X10*3/uL Crowley # (Auto) 0.6 (0.1-1.2) X10*3/uL Eos # (Auto) 0.3 (0.0-0.4) X10*3/uL Baso # (Auto) 0.0 (0.0-0.2) X10*3/uL Abs Immat Gran (auto) 0.02 (0.00-0.03) X10*3/uL Absolute Neuts (auto) 4.0 (2.0-8.3) x10*3/uL Absolute Nucleated RBC 0.000 (0.0-0.012) X10*3/uL Nucleated RBC % (auto) 0.0 (0.0-0.2) /100WBC Sodium 138 (135-145) mmol/L Potassium 4.1 (3.3-5.1) mmol/L Chloride 104 (96-108) mmol/L Carbon Dioxide 23 (22-29) mmol/L Anion Gap 15 (12-20) BUN 11 (9-16) mg/dL Creatinine 0.76 (0.5-1.4) mg/dL Estim Creat Clear Calc 68.0 Estimated GFR > 60 Random Glucose 115 (60-115) mg/dL Calcium 10.4 H D (8.4-10.2) mg/dL Total Bilirubin 0.2 (0.0-1.0) mg/dL AST 18 (5-31) U/L ALT 13 (0-31) U/L Alkaline Phosphatase 66 (39-117) U/L Troponin I High Sens < 2.7 < 2.7 (<3.5-17.0) ng/L Total Protein 7.7 (6.5-8.0) g/dL Albumin 4.3 (3.5-5.0) g/dL Urine Color Yellow Urine Appearance Clear Urine pH 7.5 (5.0-9.0) Ur Specific [place] 1.015 (1.005-1.025) Urine Protein Negative (Neg-Trace) mg/dL Urine Glucose (UA) Negative (Negative) mg/dL Urine Ketones Negative (Negative) mg/dL Urine Blood Negative (Negative) Urine Nitrite Negative (Negative) Ur Leukocyte Esterase Small (1+) H (Negative) Urine RBC 0-2 (0-2) /HPF Urine WBC 0-5 (0-5) /HPF Ur Squamous Epith Cells 0-2 (0-2) /HPF Urine Bacteria None Seen (None Seen) Hyaline Casts 0-2 (0-2) /LPF Independent Interpretation I performed an independent interpretation of an: EKG and CT Scan (no ICH, no dissection) Interpretation: Rate: 90 Rhythm: NSR Bonham: normal Normal P waves. Normal AIDEN. Normal QRS complex. ST T wave : normal no FELECIA, inverted t wave aVL V1 and V2 qTC: 420 prior studies: no priors The study has been interpreted contemporaneously by me. . Radiology Impression Discussion of test interpretation with radiology: I have reviewed the radiologist's reading. Independent Historian Clinical information obtained from an independent historian. History obtained from or confirmed by: Spouse Discharge Plan Discharge Clinical Impression: Dizziness, Gait instability Patient Disposition: Admitted As Inpatient Print Language: Jordanian
[2023-12-25 02:25] LABS: Troponin-I High Sensitivity < 2.7 ng/L (<3.5-17.0)
[2023-12-25] MEDS: 0.9 % Sodium Chloride 1,000 ML 999 ML IV (02:26)
[2023-12-25] MEDS: LORazepam 2 MG/ML VIAL 1 MG IVPUSH (02:26)
[2023-12-25 02:40] LABS: Appearance Urine Clear; Color Urine Yellow; Glucose Urine UA Negative (Negative); Leukocyte Esterase Urine Small (1+) (Negative); Nitrite Urine Negative (Negative); PH 7.5 (5.0-9.0); Specific Gravity - Urine 1.015 (1.005-1.025); UMIC TRIGGER UACC YES; Urine Blood Negative (Negative); Urine Ketones Negative (Negative); Urine Protein Negative (Neg-Trace)
--- NOTE | 2023-12-25 02:52 | PC.NURSE ---
pt from home, a&ox4, respirations even and unlabored, pt reporting dizziness since 8pm, reports episodes of chest pain while sitting in the waiting room, pt reports chest pain has now resolved at this time. 20G placed in left ac, medicated per oct. pt helped to bathroom in wheelchair, reports dizziness when standing, urine sample obtained and sent to lab.
[2023-12-25] MEDS: iohexoL 350 MG/ML 100 ML INFUS..BTL 70 ML IV (03:15)
[2023-12-25 03:20] LABS: Bacteria Urine None Seen (None Seen); Hyaline Casts Urine 0-2 /LPF (0-2); RBC Urine 0-2 /HPF (0-2); Squamous Epithelial Cell Urine 0-2 /HPF (0-2); UACC Culture Trigger YES; WBC Urine 0-5 /HPF (0-5)
--- NOTE | 2023-12-25 08:50 | PC.NURSE ---
assumed care of pt at 0700. pt sleeping peacefully on stretcher. pending admission for MRI. pt updated on pt plan of care. rr even/unlabored. call alvarez within reach. plan of care ongoing.
--- NOTE | 2023-12-25 08:57 | PHA.MEDREC ---
Pharmacy Consult ? Medication Reconciliation Pharmacy has completed the medication reconciliation. Spoke to patient at bedside, only reports OTC vitamins
--- NOTE | 2023-12-25 09:57 | PM.IMHP ---
History of Present Illness Date of Service: 12/25/23 Attending physician on admission: Dwayne Mcfarlane Chief Complaint: dizziness 58-year-old female with history of unspecified asthma, anxiety/depression, PTSD presented to the ED early this morning for evaluation of chest pain, left-sided neck pain, dyspnea, and dizziness that started late last night while at work at the 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 She developed sudden onset chest pressure described as a gas pain that was nonradiating in the mid chest. There was associated dyspnea and lightheadedness with unsteady gait. She was also reporting posterior left neck pain. She states the symptoms lasted for about 4 hours before resolving spontaneously. However she states the dizziness and unsteadiness on her feet has persisted despite resolution of associated symptoms. She is currently resting in bed and denies any symptoms at rest. However upon standing and with walking she feels very unsteady and lightheaded. Denies any room spinning dizziness. No fevers, chills, recent illness, abdominal pain, nausea, vomiting, diarrhea, urinary symptoms, cough, current dyspnea, syncope, recurrent chest pain. On arrival, patient was hypertensive to 190/109 with gradual lowering of blood pressure with bp on admission 116/65. Orthostatic vital signs negative. There is no leukocytosis. Renal function baseline, electrolyte levels normal. Troponin undetectable x2. Lipid panel pending. Urinalysis unremarkable. CTA of the head/neck negative for any acute intracranial abnormality or hemodynamically significant stenosis/large vessel occlusion. 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 Pt will be observed overnight for management of ongoing dizziness. Review of Systems Review of Systems: General: No fevers, malaise, unintentional weight loss HEENT: No blurred vision, diplopia. No sore throat, nasal congestion, rhinorrhea, sinus pain, ear pain Cardiovascular: +chest pain. No palpitations, or leg edema Respiratory: +sob. No wheezing, cough GI: No abdominal pain, nausea, vomiting, diarrhea, constipation, melena, hematochezia : No dysuria, hematuria, increased urinary frequency, decreased urinary output MSK: No myalgia, back pain Neuro: No headaches, weakness, paresthesias. +lightheadedness Skin: No rashes or lesions [facility] Medical History (Updated 12/25/23 @ 10:15 by ROSALINO Canseco) Asthma Right lower quadrant pain Anxiety Family History Father No problems noted. Mother No problems noted. 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 Current occupational exposures/hazards: No Cognitive needs: No Hearing needs: No Vision needs: Yes (glasses) Meds Allergies Allergy/AdvReac Type Severity Reaction Status Date / Time latex [LATEX] Allergy Unknown DIFF Verified 12/24/23 21:02 BREATHING Active Medications: Current Medications Acetaminophen (Acetaminophen 325 Mg Tablet) 650 mg PO Q6H PRN PRN Reason: Pain, Mild (Pain Scale 1-3) Aspirin (Aspirin Enteric Coated 81 Mg Tablet.) 81 mg PO DAILY [facility] Atorvastatin Calcium (Atorvastatin Calcium 80 Mg Tablet) 80 mg PO DAILY [facility] Calcium Carbonate (Calcium Carbonate 500 Mg Tablet) 500 mg PO DAILY [facility] Cyanocobalamin (Cyanocobalamin (Vitamin B-12) 1,000 Mcg Tablet) 1,000 mcg PO DAILY [facility] Enoxaparin Sodium (Enoxaparin Sodium 40 Mg/0.4 Ml Syringe) 40 mg SUBCUT Q24H [facility] Ondansetron HCl (Ondansetron Hcl 4 Mg/2 Ml Vial) 4 mg IVPUSH Q8H PRN PRN Reason: Nausea and Vomiting Senna (Sennosides 8.6 Mg Tablet) 17.2 mg PO BEDTIME PRN PRN Reason: Constipation Sodium Chloride (0.9 % Sodium Chloride Flush 3 Ml Syringe) 3 ml IVFLUSH QSHIFT [facility] Home Medications ?Medication ?Instructions ?Recorded ?Confirmed ?Last Taken ?Type calcium carbonate 500 mg PO DAILY 12/25/23 12/25/23 12/24/23 History cyanocobalamin (vitamin B-12) 1,000 mcg PO DAILY 12/25/23 12/25/23 12/24/23 History 1,000 mcg tablet Physical Exam Vital Signs and Narrative: Vital Signs: Last Vital Signs Temp 97.9 F 12/25/23 08:17 Pulse 75 12/25/23 08:17 Resp 12 12/25/23 08:17 BP 116/65 12/25/23 08:17 Pulse Ox 100 12/25/23 08:17 O2 Del Method Room Air 12/25/23 08:17 BMI result Body Mass Index 19.7 Constitutional - Awake and Alert, No apparent distress Eyes - PERRLA, EOMI Cardiovascular - S1S2, RRR, No edema Respiratory - Normal lung expansion, Normal respiratory effort, No respiratory distress, CTA bilaterally Gastrointestinal - NT / ND; +BS; No rebound or guarding Extremities - no calf tenderness bilaterally, no swelling Skin - Warm/Dry Neurological - Alert & oriented x3, CN II-XII in tact, 5/5 strength BUE and BLE. No cerebellar ataxia with normal finger to nose testing and normal heel to houes testing, however gait unsteady. Negative romberg Psychological - Appropriate affect Results Labs 12/24/23 21:17 12/24/23 21:17 Labs: Laboratory Results - last 24 hr 12/24/23 12/25/23 12/25/23 21:17 01:56 02:31 MCV 86.7 MCH 30.1 MCHC 34.7 RDW 12.3 Plt Count 301 MPV 8.9 L Immature Gran % (Auto) 0.3 Neut % (Auto) 55.2 Lymph % (Auto) 33.3 [place] % (Auto) 7.5 Eos % (Auto) 3.6 Baso % (Auto) 0.1 Lymph # (Auto) 2.4 [place] # (Auto) 0.6 Eos # (Auto) 0.3 Baso # (Auto) 0.0 Abs Immat Gran (auto) 0.02 Absolute Neuts (auto) 4.0 Absolute Nucleated RBC 0.000 Nucleated RBC % (auto) 0.0 Anion Gap 15 Estim Creat Clear Calc 68.0 Estimated GFR > 60 Random Glucose 115 Calcium 10.4 H D Total Bilirubin 0.2 AST 18 ALT 13 Alkaline Phosphatase 66 Troponin I High Sens < 2.7 < 2.7 Total Protein 7.7 Albumin 4.3 Urine Color Yellow Urine Appearance Clear Urine pH 7.5 Ur Specific [place] 1.015 Urine Protein Negative Urine Glucose (UA) Negative Urine Ketones Negative Urine Blood Negative Urine Nitrite Negative Ur Leukocyte Esterase Small (1+) H Urine RBC 0-2 Urine WBC 0-5 Ur Squamous Epith Cells 0-2 Urine Bacteria None Seen Hyaline Casts 0-2 Imaging Radiologist's Impressions: Impressions Head/Neck CTA 12/25/23 02:55 IMPRESSION: 1. No acute intracranial findings. 2. No hemodynamically significant stenosis in the major arteries of the neck. No large vessel occlusion or significant stenosis in the intracranial circulation. Assessment and Plan (1) Gait instability: Status: Acute (2) Dizziness: Status: Acute Plan 58-year-old female with history of unspecified asthma, anxiety/depression, PTSD to be observed for gait abnormality with persistent lightheadness. #Gait instability and dizziness -CTA head/neck negative for acute intracranial abnormality, hemodynamically significant stenosis, or large vessel occlusion. 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 Will need outpatient follow-up with neuro interventional radiology versus neurosurgery # chest pain -resolved, troponins flat. EKG without any acute ischemic changes # unspecified asthma -no exacerbation, albuterol p.r.n. # mood disorder -not on home meds DVT prophylaxis-Lovenox Full code Quality Stroke Does the patient have a stroke diagnosis?: No Reason for No Anti-thrombotic by Day Two: Drug treatment not indicated VTE Prior VTE?: No VTE Risk Level:: Medical - moderate - high VTE Device Contraindication: Treatment Not Indicated VTE Drug Contraindication: N/A - Med Ordered
[2023-12-25 10:24] LABS: Cholesterol 221 mg/dL (<200); HDL Cholesterol 97 mg/dL (>40); LDL Cholesterol Calculated 114 mg/dL (<100); Triglycerides 51 mg/dL (<150)
[2023-12-25 10:36] LABS: Estimated Average Glucose 108 mg/dL; Hemoglobin A1c % 5.4 % (<6.0)
[2023-12-25] MEDS: Aspirin 81 MG TAB.CHEW 324 MG PO (10:44)
[2023-12-25] MEDS: Enoxaparin Sodium 40 MG/0.4 ML SYRINGE SUBCUT (10:45)
--- NOTE | 2023-12-25 12:34 | MHC.EDTECH ---
Patient feels very dizzy, can t get out of the bed!!!
--- NOTE | 2023-12-25 12:36 | PC.NURSE ---
pt still reporting severe dizziness. meclizine ordered per ROSALINO Lane. pt passed swallow eval. low sodium diet ordered per ROSALINO Lane. MRI screening form filled out and faxed. awaiting MRI. rr even/unlabored. call alvarez within reach. plan of care ongoing.
--- NOTE | 2023-12-25 12:48 | PM.NEUROCN ---
History of Present Illness Data of Consult Service Date: 12/25/23 Primary Care Provider: Unknown Physician HPI This is a 58-year-old female with history of asthma, anxiety/depression, PTSD presented to the ED with chest pain, left-sided neck pain, dyspnea, and dizziness that started late last night while at work at the [employer]. . She developed sudden onset chest pressure described as a gas pain that was nonradiating in the mid chest. There was associated dyspnea and lightheadedness with unsteady gait. She was also reporting posterior left neck pain. She states the symptoms lasted for about 4 hours before resolving spontaneously. However she states the dizziness and unsteadiness on her feet has persisted despite resolution of associated symptoms. However, upon standing and walking, she feels very unsteady and lightheaded. Denies any room spinning dizziness. No fevers, chills, recent illness, nausea, vomiting, diarrhea, urinary symptoms, syncope, recurrent chest pain. Admission BP 190/109 with gradual lowering of blood pressure to 116/65. Orthostatic vital signs negative. Troponin undetectable x2. CTA of the head/neck negative for any acute intracranial abnormality or hemodynamically significant stenosis/large vessel occlusion. Incidental finding of 3 mm saccular aneurysm arising from the medial clinoid segment of left internal carotid artery Review of Systems Review of Systems: General: No fevers, malaise, unintentional weight loss HEENT: No blurred vision, diplopia. No sore throat, nasal congestion, rhinorrhea, sinus pain, ear pain Cardiovascular: +chest pain. No palpitations, or leg edema Respiratory: +sob. No wheezing, cough GI: No abdominal pain, nausea, vomiting, diarrhea, constipation, melena, hematochezia : No dysuria, hematuria, increased urinary frequency, decreased urinary output MSK: No myalgia, back pain Neuro: No headaches, weakness, paresthesias. +lightheadedness Skin: No rashes or lesions PMFSH Past Medical History Medical History (Updated 12/25/23 @ 10:15 by ROSALINO Canseco) Asthma Right lower quadrant pain Anxiety Family History Family History Father No problems noted. Mother No problems noted. 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 Current occupational exposures/hazards: No Cognitive needs: No Hearing needs: No Vision needs: Yes (glasses) Meds Allergies Allergy/AdvReac Type Severity Reaction Status Date / Time latex [LATEX] Allergy Unknown DIFF Verified 12/24/23 21:02 BREATHING Active Medications: Current Medications Acetaminophen (Acetaminophen 325 Mg Tablet) 650 mg PO Q6H PRN PRN Reason: Pain, Mild (Pain Scale 1-3) Aspirin (Aspirin Enteric Coated 81 Mg Tablet.Dr) 81 mg PO DAILY [facility] Atorvastatin Calcium (Atorvastatin Calcium 80 Mg Tablet) 80 mg PO DAILY [facility] Calcium Carbonate (Calcium Carbonate 500 Mg Tablet) 500 mg PO DAILY [facility] Cyanocobalamin (Cyanocobalamin (Vitamin B-12) 1,000 Mcg Tablet) 1,000 mcg PO DAILY [facility] Enoxaparin Sodium (Enoxaparin Sodium 40 Mg/0.4 Ml Syringe) 40 mg SUBCUT Q24H [facility] Last Admin: 12/25/23 10:45 Dose: 40 mg Meclizine HCl (Meclizine Hcl 25 Mg Tablet) 25 mg PO Q8H PRN PRN Reason: Dizziness Ondansetron HCl (Ondansetron Hcl 4 Mg/2 Ml Vial) 4 mg IVPUSH Q8H PRN PRN Reason: Nausea and Vomiting Senna (Sennosides 8.6 Mg Tablet) 17.2 mg PO BEDTIME PRN PRN Reason: Constipation Sodium Chloride (0.9 % Sodium Chloride Flush 3 Ml Syringe) 3 ml IVFLUSH QSHIFT [facility] Home Medications ?Medication ?Instructions ?Recorded ?Confirmed ?Last Taken ?Type calcium carbonate 500 mg PO DAILY 12/25/23 12/25/23 12/24/23 History cyanocobalamin (vitamin B-12) 1,000 mcg PO DAILY 12/25/23 12/25/23 12/24/23 History 1,000 mcg tablet Physical Exam Vital Signs: Vital Signs: Last Vital Signs Temp 97.7 F 12/25/23 12:31 Pulse 75 12/25/23 12:31 Resp 22 H 12/25/23 12:31 BP 124/82 12/25/23 12:31 Pulse Ox 100 12/25/23 12:31 O2 Del Method Room Air 12/25/23 12:31 BMI result Body Mass Index 19.7 Neuro: Other: Alert, oriented x3. Cranial nerves II through XII are normal. Normal nonfocal neurological examination Results Labs 12/24/23 21:17 12/24/23 21:17 Labs: Short CBC 12/24/23 Range/Units 21:17 WBC 7.3 (4.8-10.8) X10*3/uL Hgb 13.3 (12.0-16.0) g/dl Hct 38.3 (37.0-47.0) % Plt Count 301 (160-400) X10*3/uL BMP 12/24/23 21:17 Sodium 138 Potassium 4.1 Chloride 104 Carbon Dioxide 23 BUN 11 Creatinine 0.76 Calcium 10.4 H D Liver Function 12/24/23 Range/Units 21:17 Total Bilirubin 0.2 (0.0-1.0) mg/dL AST 18 (5-31) U/L ALT 13 (0-31) U/L Alkaline Phosphatase 66 (39-117) U/L Albumin 4.3 (3.5-5.0) g/dL Urine 12/25/23 Range/Units 02:31 Urine Color Yellow Urine Appearance Clear Urine pH 7.5 (5.0-9.0) Ur Specific [place] 1.015 (1.005-1.025) Urine Protein Negative (Neg-Trace) mg/dL Urine Glucose (UA) Negative (Negative) mg/dL Assessment and Plan (1) Gait instability: Status: Acute (2) Dizziness: Status: Acute Nonspecific dizziness, possibly from low blood pressure or cardiac etiology. CTA negative Recommendation: MRI of the brain. Check for orthostatic hypotension. Cardiac monitoring Plan 58-year-old female with history of unspecified asthma, anxiety/depression, PTSD to be observed for gait abnormality with persistent lightheadness. #Gait instability and dizziness -CTA head/neck negative for acute intracranial abnormality, hemodynamically significant stenosis, or large vessel occlusion. 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 Will need outpatient follow-up with neuro interventional radiology versus neurosurgery # chest pain -resolved, troponins flat. EKG without any acute ischemic changes # unspecified asthma -no exacerbation, albuterol p.r.n. # mood disorder -not on home meds DVT prophylaxis-Lovenox Full code Procedures Date of Service Date of Service: 12/25/23
--- NOTE | 2023-12-25 13:08 | PC.NURSE ---
pt to MRI.
--- NOTE | 2023-12-25 21:42 | PC.NURSE ---
pt is axox4 at bedside brought pt food. pt tolerating po no delayed swallowing/cough noted. vss. pt denies any complaints at this time; denies cp/sob/dizziness/n/v/d. call alvarez within reach.
[2023-12-26] VITALS (8 sets, daily range): BP systolic 115–146; BP diastolic 71–96; PULSE 80–95; RESP 14–20; TEMP 36.1–37; O2SAT 97–100
[2023-12-26 05:47] LABS: MANUAL DIFF FLAG NO
[2023-12-26 05:48] LABS: Basophils Percent Auto 0.2 % (0-2); Eosinophils Absolute Auto 0.2 X10*3/uL (0.0-0.4); Eosinophils Percent Auto 4.3 % (0-4); Hematocrit 38.3 % (37.0-47.0); Imm Gran Abs Auto 0.01 X10*3/uL (0.00-0.03); Imm Gran Pct Auto 0.2 % (0.0-0.4); Lymphocytes Absolute Auto 1.9 X10*3/uL (1.2-4.9); Lymphocytes Percent Auto 34.8 % (20-40); Mean Corpuscular HGB Conc 33.9 g/dl (31.0-35.0); Mean Corpuscular Volume 88.5 fL (80.0-98.0); Mean Platelet Volume 9.2 fL (9.4-12.3); Monocytes Absolute Auto 0.4 X10*3/uL (0.1-1.2); Neutrophils Absolute Auto 2.8 x10*3/uL (2.0-8.3); Neutrophils Percent Auto 52.5 % (45-73); Platelet Count 272 X10*3/uL (160-400); Red Blood Count 4.33 X10*6/uL (4.20-5.50); Red Cell Distribution Width 12.3 % (11.0-16.0); White Blood Count 5.4 X10*3/uL (4.8-10.8)
[2023-12-26 06:09] LABS: Anion Gap 10 (12-20); Blood Urea Nitrogen 10 mg/dL (9-16); Carbon Dioxide 25 mmol/L (22-29); Chloride 111 mmol/L (96-108); Creatinine Clr Calc Pharmacy 74.9; Estimated Glomerular Filt Rate > 60; Glucose Random 87 mg/dL (60-115); Potassium 4.1 mmol/L (3.3-5.1); Sodium 142 mmol/L (135-145)
--- NOTE | 2023-12-26 07:29 | P.DS_ITS ---
DS: Providers Provider Date of admission: 12/25/23 09:50 Primary care physician: Unknown Physician Consults: 12/25/23 09:53 Consult to Neurology Routine Consulting Provider: [facility] Reason for consultation: persistent dizziness, eval for saccular carotid aneurysm DS: Diagnosis Discharge Diagnosis (1) Gait instability: Status: Acute (2) Dizziness: Status: Acute Physical Exam Vital Signs: Vital Signs: Last Vital Signs Temp 97.7 F 12/25/23 20:15 Pulse 80 12/26/23 03:17 Resp 17 12/26/23 03:17 BP 119/71 12/26/23 03:17 Pulse Ox 99 12/26/23 03:17 O2 Del Method Room Air 12/26/23 03:17 BMI result Body Mass Index 19.7 DS: Data Data Completed and Pending Labs on day of discharge: Laboratory Results - last 24 hr 12/24/23 12/25/23 12/26/23 21:17 01:56 04:20 WBC 5.4 RBC 4.33 Hgb 13.0 Hct 38.3 MCV 88.5 MCH 30.0 MCHC 33.9 RDW 12.3 Plt Count 272 MPV 9.2 L Immature Gran % (Auto) 0.2 Neut % (Auto) 52.5 Lymph % (Auto) 34.8 [place] % (Auto) 8.0 Eos % (Auto) 4.3 H Baso % (Auto) 0.2 Lymph # (Auto) 1.9 [place] # (Auto) 0.4 Eos # (Auto) 0.2 Baso # (Auto) 0.0 Abs Immat Gran (auto) 0.01 Absolute Neuts (auto) 2.8 Absolute Nucleated RBC 0.000 Nucleated RBC % (auto) 0.0 Sodium 142 Potassium 4.1 Chloride 111 H Carbon Dioxide 25 Anion Gap 10 L BUN 10 Creatinine 0.69 Estim Creat Clear Calc 74.9 Estimated GFR > 60 Random Glucose 87 Estimat Average Glucose 108 Hemoglobin A1c % 5.4 Calcium 9.0 D Triglycerides 51 Cholesterol 221 H LDL Cholesterol, Calc 114 H HDL Cholesterol 97 Discharge Plan Discharge Referrals: Physician,Unknown J [Primary Care Provider] - 1 Week Discharge Medications: Continued cyanocobalamin (vitamin B-12) 1,000 mcg Tablet 1,000 mcg PO DAILY calcium carbonate [Calcium 500] 500 mg calcium (1,250 mg) Tablet 500 mg PO DAILY Diet: Advance to usual diet Print Language: [place]
[2023-12-26 07:49] LABS: Glucose, Whole Blood 101 mg/dL (60-115)
--- NOTE | 2023-12-26 08:00 | PC.NURSE ---
Pt alerted RN that she was feeling dizziness and shakiness since she woke up. Alert and oriented, denies CP or SOB. BP noted to be hypertensive, NSR on reinsurance accountant. BGL assessed and is WNL. Admitting provider alerted and awaiting orders.
[2023-12-26] MEDS: Aspirin Enteric Coated 81 MG TABLET.DR PO (09:25)
[2023-12-26] MEDS: Atorvastatin Calcium 80 MG TABLET PO (09:25)
[2023-12-26] MEDS: 0.9 % Sodium Chloride 1,000 ML 999 ML IV (09:25)
[2023-12-26] MEDS: 0.9 % Sodium Chloride Flush 3 ML SYRINGE IVFLUSH ×2 (09:26→21:17)
[2023-12-26] MEDS: Cyanocobalamin (Vitamin B-12) 1,000 MCG TABLET 1000 MCG PO (09:26)
[2023-12-26] MEDS: Enoxaparin Sodium 40 MG/0.4 ML SYRINGE SUBCUT (09:28)
[2023-12-26] MEDS: SUMAtriptan succinate 50 MG TABLET PO ×2 (09:38→15:13)
--- NOTE | 2023-12-26 09:52 | MHC.CM.PN ---
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 Her can pick her up at [place]. She will complete HCP here, naming her .DC plan is home, self care.
--- NOTE | 2023-12-26 13:02 | HO.PM.IMPN ---
Subjective Subjective Date of Service: 12/26/23 Interval History: Seen in follow up for dizziness Interval history: Remains lightheaded with improving bilateral blurred vision. Has developed unilateral left sided headache. Did experience some relief at rest with imitrex but still feels very unsteady on her feet Review of Systems Review of Systems: Yes all other systems are reviewed and are negative Physical Exam Vital Signs: Vital Signs: Last Vital Signs Temp 97.7 F 12/25/23 20:15 Pulse 87 12/26/23 12:05 Resp 14 12/26/23 12:05 BP 146/88 H 12/26/23 12:05 Pulse Ox 97 12/26/23 12:05 O2 Del Method Room Air 12/26/23 12:05 BMI result Body Mass Index 19.7 Constitutional - Awake and Alert, No apparent distress Eyes - PERRLA, EOMI Ears- external ears normal, canals clear, TMs intact and pearly messina with good cone of light Cardiovascular - S1S2, RRR, No edema Respiratory - Normal lung expansion, Normal respiratory effort, No respiratory distress, CTA bilaterally Gastrointestinal - NT / ND; +BS; No rebound or guarding Extremities - no calf tenderness bilaterally, no swelling Skin - Warm/Dry Neurological - Alert & oriented x3, CN II-XII in tact, 5/5 strength BUE and BLE, cautious gait reaching for hand to assist and balance Psychological - Appropriate affect Objective Data Active Medications Acetaminophen (Acetaminophen 325 Mg Tablet) 650 mg PO Q6H PRN PRN Reason: Pain, Mild (Pain Scale 1-3) Aspirin (Aspirin Enteric Coated 81 Mg Tablet.) 81 mg PO DAILY [facility] Last Admin: 12/26/23 09:25 Dose: 81 mg Documented By: DONNIE Atorvastatin Calcium (Atorvastatin Calcium 80 Mg Tablet) 80 mg PO DAILY [facility] Last Admin: 12/26/23 09:25 Dose: 80 mg Documented By: DONNIE Calcium Carbonate (Calcium Carbonate 500 Mg Tablet) 500 mg PO DAILY [facility] Last Admin: 12/26/23 09:25 Dose: 500 mg Documented By: DONNIE Cyanocobalamin (Cyanocobalamin (Vitamin B-12) 1,000 Mcg Tablet) 1,000 mcg PO DAILY [facility] Last Admin: 12/26/23 09:26 Dose: 1,000 mcg Documented By: DONNIE Enoxaparin Sodium (Enoxaparin Sodium 40 Mg/0.4 Ml Syringe) 40 mg SUBCUT Q24H [facility] Last Admin: 12/26/23 09:28 Dose: 40 mg Documented By: DONNIE Meclizine HCl (Meclizine Hcl 25 Mg Tablet) 25 mg PO Q8H PRN PRN Reason: Dizziness Ondansetron HCl (Ondansetron Hcl 4 Mg/2 Ml Vial) 4 mg IVPUSH Q8H PRN PRN Reason: Nausea and Vomiting Senna (Sennosides 8.6 Mg Tablet) 17.2 mg PO BEDTIME PRN PRN Reason: Constipation Sodium Chloride (0.9 % Sodium Chloride Flush 3 Ml Syringe) 3 ml IVFLUSH QSHIFT [facility] Last Admin: 12/26/23 09:26 Dose: 3 ml Documented By: DONNIE Labs 12/26/23 04:20 12/26/23 04:20 Labs: Laboratory Results - last 24 hr 12/26/23 12/26/23 04:20 07:45 MCV 88.5 MCH 30.0 MCHC 33.9 RDW 12.3 Plt Count 272 MPV 9.2 L Immature Gran % (Auto) 0.2 Neut % (Auto) 52.5 Lymph % (Auto) 34.8 [place] % (Auto) 8.0 Eos % (Auto) 4.3 H Baso % (Auto) 0.2 Lymph # (Auto) 1.9 [place] # (Auto) 0.4 Eos # (Auto) 0.2 Baso # (Auto) 0.0 Abs Immat Gran (auto) 0.01 Absolute Neuts (auto) 2.8 Absolute Nucleated RBC 0.000 Nucleated RBC % (auto) 0.0 Anion Gap 10 L Estim Creat Clear Calc 74.9 Estimated GFR > 60 POC Glucose 101 Random Glucose 87 Calcium 9.0 D Microbiology Microbiology Results: Microbiology 12/25/23 Unknown Urine Culture - Preliminary Urine clean catch - Urine messina top Culture in progress. Assessment and Plan (1) Gait instability: Status: Acute (2) Dizziness: Status: Acute Plan 58-year-old female with history of unspecified asthma, anxiety/depression, PTSD to be observed for gait abnormality with persistent lightheadness. #Gait instability and dizziness- remains very lightheaded with ambulation despite no orthostasis -CTA head/neck negative for acute intracranial abnormality, hemodynamically significant stenosis, or large vessel occlusion. There is incidentally seen 3 mm saccular aneurysm of the left carotid artery -no obvious cerebellar ataxia on exam however does have unsteady gait but negative Romberg -denies room spinning dizziness, no nystagmus -?r/t migraine. Trialed imitrex 50mg with some improvement of symptoms at rest, but still lightheaded with just a few steps -orthostatic vs negative -MRI without acute intracranial abnormality, shows 3mm sacular aneurysm left carotid artery which is noncontributory -Given no stroke, discontineu aspirin. 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 Will need outpatient follow-up with neuro interventional radiology versus neurosurgery # chest pain -resolved, troponins flat. EKG without any acute ischemic changes # unspecified asthma -no exacerbation, albuterol p.r.n. # mood disorder -not on home meds DVT prophylaxis-Lovenox Full code Quality Stroke Does the patient have a stroke diagnosis?: No Reason for No Anti-thrombotic by Day Two: Drug treatment not indicated VTE Prior VTE?: No VTE Risk Level:: Medical - moderate - high VTE Device Contraindication: Treatment Not Indicated VTE Drug Contraindication: N/A - Med Ordered
[2023-12-27 03:03] VITALS: BP 134/84; PULSE 78; RESP 15; TEMP 36.2; O2SAT 97
[2023-12-27] MEDS: ondansetron HCL 4 MG/2 ML VIAL IVPUSH (05:59)
[2023-12-27 07:08] VITALS: BP 127/82; PULSE 84; RESP 12; TEMP 36.8; O2SAT 98
[2023-12-27] MEDS: Cyanocobalamin (Vitamin B-12) 1,000 MCG TABLET 1000 MCG PO (08:24)
[2023-12-27] MEDS: 0.9 % Sodium Chloride Flush 3 ML SYRINGE IVFLUSH (08:25)
[2023-12-27] MEDS: Atorvastatin Calcium 20 MG TABLET PO (08:25)
--- NOTE | 2023-12-27 09:53 | P.DS_ITS ---
DS: Providers Provider Date of Service: 12/27/23 Date of admission: 12/25/23 09:50 Date of discharge: 12/27/23 Primary care physician: Neto Bhandari MD Admitting clinician: Ariana Flores Attending physician on admission: Dwayne Mcfarlane Consults: 12/25/23 09:53 Consult to Neurology Routine Consulting Provider: [facility] Reason for consultation: persistent dizziness, eval for saccular carotid aneurysm Attending physician on discharge: Dwayne Mcfarlane Discharging clinician: Ariana Flores DS: Diagnosis Discharge Diagnosis (1) Gait instability: Status: Acute (2) Dizziness: Status: Acute DS: Summary Hospital Course Hospital Course: HPI on admission by this provider 12/24: Chief Complaint: dizziness 58-year-old female with history of unspecified asthma, anxiety/depression, PTSD presented to the ED early this morning for evaluation of chest pain, left-sided neck pain, dyspnea, and dizziness that started late last night while at work at the 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 She developed sudden onset chest pressure described as a gas pain that was nonradiating in the mid chest. There was associated dyspnea and lightheadedness with unsteady gait. She was also reporting posterior left neck pain. She states the symptoms lasted for about 4 hours before resolving spontaneously. However she states the dizziness and unsteadiness on her feet has persisted despite resolution of associated symptoms. She is currently resting in bed and denies any symptoms at rest. However upon standing and with walking she feels very unsteady and lightheaded. Denies any room spinning dizziness. No fevers, chills, recent illness, abdominal pain, nausea, vomiting, diarrhea, urinary symptoms, cough, current dyspnea, syncope, recurrent chest pain. On arrival, patient was hypertensive to 190/109 with gradual lowering of blood pressure with bp on admission 116/65. Orthostatic vital signs negative. There is no leukocytosis. Renal function baseline, electrolyte levels normal. Troponin undetectable x2. Lipid panel pending. Urinalysis unremarkable. CTA of the head/neck negative for any acute intracranial abnormality or hemodynamically significant stenosis/large vessel occlusion. 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 Pt will be observed overnight for management of ongoing dizziness. Hospital course: Pt admitted to hospitalist service for evaluation of nonspecific dizziness. MRI unremarkable except for 3mm saccular aneurysm of left carotid. Evaluated by neurology who felt lightheadedness was nonspecific. She was trialed on meclizine without effect. Orthostatic VS checked on multiple occassions negative. Pt did develop left frontal headache with blurred vision associated with the lightheadedness. After abotu 10 minutes experienced a brief seconds long episode of LLE paresthesias. Trialed on imitrex with full resolution of symptoms. Symptoms likely related to complex migraine possibly in the setting of perimenopause. Discussed with neurology, given recurrence of symptoms trial topamax 25mg daily for prophyalxis and discharged with imitrex 50mg daily MRx1 as needed for migraine headaches/lightheadedness. Elevated blood pressures likely in setting of migraine headache resolved without intervention. All other vitals remained stable throughout admission and labs were unremarkable. Follow up outpt with neurology and pcp and possible vascular referral at discretion of pcp for follow up on tiny saccular aneurysm Left carotid artery. Can use zofran prn for nausea. Status at Discharge Functional status at discharge: independent ambulation Overall status at discharge: patient is progressing back to baseline Time Attestation Discharge Coordination Time (in mins): 41 Quality: Safe Use of Opioids Does Pt have an Active Cancer Diagnosis on the Problem List?: No Quality: Stroke Does the patient have a stroke diagnosis?: No Physical Exam Vital Signs: Vital Signs: Last Vital Signs Temp 98.3 F 12/27/23 07:08 Pulse 84 12/27/23 07:08 Resp 12 12/27/23 07:08 BP 127/82 12/27/23 07:08 Pulse Ox 98 12/27/23 07:08 O2 Del Method Room Air 12/27/23 07:08 BMI result Body Mass Index 19.7 Discharge Plan Discharge Anticipated Discharge Date/Time: 12/27/23 14:40 Patient Disposition: Home, Self-Care Discharge Diagnosis: Complex migraine Referrals: July Schwab MD [Physician] - 1 Week Physician,Unknown J [Physician] - 1 Week Discharge Medications: New sumatriptan succinate 50 mg Tablet 50 mg PO DAILY MRX1 PRN (Reason: migraine/lightheadedness) Qty: 15 0RF topiramate 25 mg tablet 25 mg PO DAILY Qty: 90 0RF ondansetron 4 mg tablet,disintegrating 4 mg PO Q8H PRN (Reason: nausea and vomiting) Qty: 14 0RF Continued cyanocobalamin (vitamin B-12) 1,000 mcg Tablet 1,000 mcg PO DAILY Qty: 90 0RF calcium carbonate 500 mg calcium (1,250 mg) Tablet 500 mg PO DAILY Qty: 90 0RF Discharge Orders: Discharge Order (Routine); Ordered 12/27/23 Ordered By: Ariana Flores Diet: Advance to usual diet Activity on Discharge: As tolerated Stand Alone Forms: Patient Portal Discharge page Print Language: Georgian Care Plan Goals: Resolve and prevent lightheadedness Health Concerns: Lightheadedness Complex migraines Plan of Treatment: Lightheadedness is most likely related to complex migraines given symptoms including lightheadedness and headache resolved with sumatriptan, a migraine medication. Your MRI was essentially normal except for a very tiny aneurysm (bulge) of the left carotid artery which would not be causing you symptoms. You can follow up with pcp for this. For migraines: Take topiramate 25 mg daily to hopefully prevent onset of migraine headaches Use Imitrex (sumatriptan) 50 mg once at onset of migraine headache/lightheadedness. If no improvement, may repeat dose once in 24 hours Follow-up with neurology as there may be alternative therapies given symptoms may be related to menopause Follow up with PCP. Assessment: See above. See discharge summary Patient Instructions: Ondansetron (By mouth), Topiramate (By mouth), Sumatriptan (By mouth) Discharge Date/Time: 12/27/23 16:00
[2023-12-27] MEDS: Enoxaparin Sodium 40 MG/0.4 ML SYRINGE SUBCUT (10:29)
[2023-12-27 11:21] VITALS: BP 112/74; PULSE 87; RESP 18; TEMP 36.3; O2SAT 99
--- NOTE | 2023-12-27 14:53 | MHC.CM.PN ---
Patient has been medically cleared for dc to home today, self care.
[2023-12-27 15:08] VITALS: BP 115/75; PULSE 88; RESP 18; TEMP 35.9; O2SAT 97
== END 2023-12-27 16:00 | disposition home or self-care (01) ==
LOC: HO.ED 12-25 04:59 → HO.EDOVER 12-25 09:59 → HO.IMC 12-26 13:26
PROVIDERS: Admitting Provider Physician Assistant; Emergency Provider Emergency Medicine; PCP Internal Medicine; Visit Provider Physician Assistant
DX: G43.109 Migraine with aura, not intractable, without status migrainosus (principal); R26.81 Unsteadiness on feet; R42 Dizziness and giddiness; R07.9 Chest pain, unspecified; R06.02 Shortness of breath; M54.2 Cervicalgia; I10 Essential (primary) hypertension; J45.909 Unspecified asthma, uncomplicated; R06.00 Dyspnea, unspecified; F43.10 Post-traumatic stress disorder, unspecified; R26.89 Other abnormalities of gait and mobility; I72.0 Aneurysm of carotid artery; F39 Unspecified mood [affective] disorder; Z79.899 Other long term (current) drug therapy
CPT/HCPCS: 36415; 70496; 70498; 70551; 80048; 80053; 80061; 81001; 82947; 83036; 84484; 85025; 87086; 93005; 96361; 96372; 96374; 97162; 97165; 99222; 99285; J1650; J2060; J2405; Q9967

== ENCOUNTER → 2023-12-24 20:46 | Outpatient (BNV) | payer OTHER, SELFPAY | PROVIDERS: Admitting Provider Physician Assistant; Emergency Provider Emergency Medicine; Visit Provider Internal Medicine Cardiovascular Disease | DX: R94.31 Abnormal electrocardiogram [ECG] [EKG] (principal) | CPT/HCPCS: 93010 ==

== ENCOUNTER → 2023-12-25 09:50 | Outpatient (BNV) | payer OTHER, SELFPAY | PROVIDERS: Admitting Provider Physician Assistant; Emergency Provider Emergency Medicine; Visit Provider Physician Assistant | DX: R26.81 Unsteadiness on feet (principal); R42 Dizziness and giddiness | CPT/HCPCS: 99223; 99232; 99239 ==

== ENCOUNTER → 2023-12-25 09:50 | Outpatient (BNV) | payer OTHER, SELFPAY | PROVIDERS: Admitting Provider Physician Assistant; Emergency Provider Emergency Medicine; Visit Provider Psychiatry & Neurology Neurology | DX: R26.81 Unsteadiness on feet (principal); R42 Dizziness and giddiness | CPT/HCPCS: 99222 ==

== ENCOUNTER 2024-01-09 09:47 | Outpatient (AMB) | payer OTHER, SELFPAY ==
[2024-01-09 09:48] VITALS: BP 116/60; PULSE 76; O2SAT 99; BMI 18.9
--- NOTE | 2024-01-09 09:48 | A.OFFPC_ITS ---
Vital Signs 01/09/24 09:48 Height 5 ft 4.5 in Weight 112 lb BMI 18.9 BP 116/60 Blood Pressure Location Lt brachial Position Sitting Pulse 76 Pulse Source Pulse Oximeter Pulse Oximetry (%) 99 Oxygen Delivery Method Room Air Intake Visit Reasons: [facility] Supervisor Lamp Shades Required: No Allergist/Immunologist: Not Required per policy Accompanied by: Self / Same As Patient Allergies latex [LATEX] Allergy (Unknown, Verified 01/09/24 09:49) DIFF BREATHING Medication List - Last Reconciled 01/10/24 by Neto Bhandari MD calcium carbonate 500 mg PO DAILY cyanocobalamin (vitamin B-12) 1,000 mcg PO DAILY ondansetron 4 mg PO Q8H PRN sumatriptan succinate 50 mg PO DAILY MRX1 PRN topiramate 25 mg PO DAILY Tobacco use date assessed: 01/09/24 Dental Screening Dental Screen Date: 01/09/24 Did you have a dental visit in the last 12 months?: No Did you have a dental problem in the last 6 months where you did not have access to dental care?: No Was dental information given to patient?: Patient has dentist HPI [facility] HPI Details had an episode of dizziness felt due to a migraine equivalent; found to have a 3mm brain aneurysm thought to be incidental; having a hrd time going back to work because of fear from employer; should get ok from neurologist [facility] Medical History (Updated 01/04/24 @ 00:04 by Molly Harrington) Asthma Right lower quadrant pain Anxiety Surgical History No pertinent past surgical history Family History Father No problems noted. Mother No problems noted. 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 1. Little interest or pleasure in doing things: not at all 2. Feeling down, depressed, or hopeless: not at all 3. Trouble falling or staying asleep, or sleeping too much: not at all 4. Feeling tired or having little energy: not at all 5. Poor appetite or overeating: not at all 6. Feeling bad about yourself - or that you are a failure or have let yourself or your family down: not at all 7. Trouble concentrating on things, such as reading the newspaper or watching television: not at all 8. Moving or speaking so slowly that other people could have noticed. Or the opposite - being so fidgety or restless that you have been moving around a lot more than usual: not at all 9. Thoughts that you would be better off or of hurting yourself in some way: not at all Total score: 0 Depression Screening Interpretation: Negative Depression Screening Done: Yes 04352 - PHQ-9 Billing: Yes Source: Developed by Drs. Bryan Marx, Ann Calero, Ankur Kaur and colleagues, with an educational faby from [employer]. Thrive Questionnaire Date Thrive assessed: 12/26/23 AUDIT C Alcohol Use Questionnaire (AUDIT-C) 1. How often do you have a drink containing alcohol?: Never Total Score: 0 Score Reviewed/Action Taken: Yes SHAYY-7 AMB Questionnaire SHAYY-7 Date SHAYY - 7 assessed: 01/09/24 Feeling nervous, anxious, or on edge: 0 = Not at all Not being able to stop or control worryin = Not at all Worrying too much about different things: 0 = Not at all Trouble relaxin = Not at all Being so restless that it is hard to sit still: 0 = Not at all Becoming easily annoyed or irritable: 0 = Not at all Feeling afraid as if something awful might happen: 0 = Not at all Total SHAYY-7 score (0-4 normal; 5-9 mild; 10-14 moderate; 15-21 severe): 0 Source: Developed by Drs. Bryan Marx, Ankur Long and colleagues, with an educational faby from [employer]. Review of Systems Const Denies chills, Denies headache(s) and Denies weight loss ENT Denies headache(s) Card Denies chest pain, Denies syncope, Denies irregular heart rhythm and Denies dyspnea Resp Denies chest congestion, Denies cough and Denies dyspnea GI Denies abdominal pain, Denies change in stool character, Denies nausea and Denies vomiting Musc Denies deformity and Denies joint swelling Neuro Denies syncope and Denies headache(s) Physical exam (Primary Care) Vital Signs: Last Vital Signs Pulse 76 01/09/24 09:48 BP 116/60 01/09/24 09:48 Pulse Ox 99 01/09/24 09:48 Oxygen Delivery Method Room Air 01/09/24 09:48 BMI result Body Mass Index 18.9 Tobacco/Smoking Status: Tobacco use Status Tobacco use date assessed 01/09/24 01/09/24 09:49 Patient Tobacco Use Status Never used Tobacco 01/09/24 09:49 e-Cigarette/Vaping Use Never Used 01/09/24 09:49 PHQ-9: PHQ-9 Score PHQ-9: Total score 0 01/09/24 09:49 Depression Screening Interpretation: Negative Thrive Assessment: Date of Thrive Assessment Date Thrive assessed 12/26/23 01/09/24 09:49 Const General: cooperative, comfortable, no acute distress and alert Neck Neck: Yes no lymphadenopathy Thyroid: Thyroid normal Resp Effort & Inspection: normal respiratory effort Auscultation: clear to auscultation bilaterally Percussion: percussion normal Cardio Jugular venous distension: no JVD Palpation: normal PMI Rate: regular rate Rhythm: regular rhythm Heart sounds: S1 normal heart sound present and S2 normal heart sound present GI Inspection: Yes normal to inspection Palpation (GI): No hepatosplenomegaly present Skin General skin exam: no rashes or lesions noted Extrem General: Yes no clubbing, cyanosis or edema Assessment and Plan Assessment & Plan (1) Brain aneurysm: Code(s): I67.1 - Cerebral aneurysm, nonruptured Plan: ref to neuro for opinion Orders: Referrals Neurology Referral I67.1 - Cerebral aneurysm, nonruptured Coding Level of Care Code Est Pt Level 3 (84957) Diagnoses Brain aneurysm I67.1
== END 2024-01-09 10:08 | disposition home or self-care (01) ==
LOC: HO.HMGH 09:47
PROVIDERS: PCP Internal Medicine; Visit Provider Internal Medicine
DX: I67.1 Cerebral aneurysm, nonruptured (principal)
CPT/HCPCS: 99213

== ENCOUNTER 2024-02-14 11:28 | Outpatient (AMB) | payer OTHER, SELFPAY ==
[2024-02-14 11:39] VITALS: BP 122/80; PULSE 67; O2SAT 98; BMI 19.3
--- NOTE | 2024-02-14 11:39 | MHC.PC.OV ---
Vital Signs 02/14/24 11:39 Height 5 ft 4.5 in Weight 114 lb BMI 19.3 BP 122/80 Blood Pressure Location Lt brachial Position Sitting Pulse 67 Pulse Source Pulse Oximeter Pulse Oximetry (%) 98 Oxygen Delivery Method Room Air Intake Visit Reasons: [facility] 01/10 Pharmacy Associate Required: No Document Specialist: Not Required per policy Accompanied by: Self / Same As Patient Allergies latex [LATEX] Allergy (Unknown, Verified 02/14/24 11:40) DIFF BREATHING Medication List - Last Reconciled 02/15/24 by Neto Bhandari MD calcium carbonate 500 mg PO DAILY cyanocobalamin (vitamin B-12) 1,000 mcg PO DAILY Tobacco use date assessed: 01/09/24 Dental Screening Dental Screen Date: 01/09/24 HPI [facility] 01/10 HPI Details has a 3mm brain aneurysm that presented and headache and right arm and leg numbness; symptoms have improved and is seeing neurosurgery; surgery is not contemplated at present [facility] Medical History (Updated 02/15/24 @ 09:58 by Neto Bhandari MD) Asthma Right lower quadrant pain Anxiety Surgical History No pertinent past surgical history Family History Father No problems noted. Mother No problems noted. 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 Bryan Marx, Ann Calero, Ankur Kaur and colleagues, with an educational faby from [employer] Review of Systems Const Denies chills, Denies headache(s) and Denies weight loss ENT Denies headache(s) Card Denies chest pain, Denies syncope, Denies irregular heart rhythm and Denies dyspnea Resp Denies chest congestion, Denies cough and Denies dyspnea GI Denies abdominal pain, Denies change in stool character, Denies nausea and Denies vomiting Musc Denies deformity and Denies joint swelling Neuro Denies syncope and Denies headache(s) Physical exam (Primary Care) Vital Signs: Last Vital Signs Pulse 67 02/14/24 11:39 BP 122/80 02/14/24 11:39 Pulse Ox 98 02/14/24 11:39 Oxygen Delivery Method Room Air 02/14/24 11:39 BMI result Body Mass Index 19.3 Tobacco/Smoking Status: Tobacco use Status Tobacco use date assessed 01/09/24 02/14/24 11:40 Patient Tobacco Use Status Never used Tobacco 02/14/24 11:40 e-Cigarette/Vaping Use Never Used 02/14/24 11:40 Thrive Assessment: Date of Thrive Assessment Date Thrive assessed 12/26/23 02/14/24 11:40 Const General: cooperative, comfortable, no acute distress and alert Neck Neck: Yes no lymphadenopathy Thyroid: Thyroid normal Resp Effort & Inspection: normal respiratory effort Auscultation: clear to auscultation bilaterally Percussion: percussion normal Cardio Jugular venous distension: no JVD Palpation: normal PMI Rate: regular rate Rhythm: regular rhythm Heart sounds: S1 normal heart sound present and S2 normal heart sound present GI Inspection: Yes normal to inspection Palpation (GI): No hepatosplenomegaly present Skin General skin exam: no rashes or lesions noted Extrem General: Yes no clubbing, cyanosis or edema Assessment and Plan Assessment & Plan (1) Brain aneurysm: Code(s): I67.1 - Cerebral aneurysm, nonruptured Plan: per neurosurgery Coding Level of Care Code Est Pt Level 3 (53113) Diagnoses Brain aneurysm I67.1
== END 2024-02-14 11:53 | disposition home or self-care (01) ==
PROVIDERS: PCP Internal Medicine; Visit Provider Internal Medicine
DX: I67.1 Cerebral aneurysm, nonruptured (principal)
CPT/HCPCS: 99213

== ENCOUNTER 2024-07-14 10:25 | Outpatient (AMB) | payer OTHER, SELFPAY ==
[2024-07-14 10:27] VITALS: BP 122/90; PULSE 89; O2SAT 100; BMI 18.8
--- NOTE | 2024-07-14 10:27 | MHC.PC.OV ---
Vital Signs 07/14/24 10:27 Height 5 ft 4.5 in Weight 111 lb 0.8 oz BMI 18.8 BP 122/90 H Blood Pressure Location Lt brachial Position Sitting Pulse 89 Pulse Source Pulse Oximeter Pulse Oximetry (%) 100 Oxygen Delivery Method Room Air Intake Visit Reasons: 6 MOF\U Allergies latex [LATEX] Allergy (Unknown, Verified 07/14/24 10:27) DIFF BREATHING Tobacco use date assessed: 01/09/24 Dental Screening Dental Screen Date: 01/09/24 HPI 6 MOF\U HPI Details has PTSD from work at [employer] during the pandemic; seeing a therapist and doing ok [facility] Medical History (Updated 07/14/24 @ 10:42 by Neto Bhandari MD) Asthma Right lower quadrant pain Anxiety Surgical History No pertinent past surgical history Family History Father No problems noted. Mother No problems noted. 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 How often do you have a drink containing alcohol?: Never 3. How often do you have six or more drinks on one occasion?: Never Total Score: 0 Score Reviewed/Action Taken: Yes SHAYY-7 AMB Questionnaire SHAYY-7 Date SHAYY - 7 assessed: 01/09/24 Source: Developed by Drs. Bryan Marx, Ann Calero, Ankur Kaur and colleagues, with an educational faby from [employer]. Review of Systems Const Denies chills, Denies headache(s) and Denies weight loss ENT Denies headache(s) Card Denies chest pain, Denies syncope, Denies irregular heart rhythm and Denies dyspnea Resp Denies chest congestion, Denies cough and Denies dyspnea GI Denies abdominal pain, Denies change in stool character, Denies nausea and Denies vomiting Musc Denies deformity and Denies joint swelling Neuro Denies syncope and Denies headache(s) Physical exam (Primary Care) Vital Signs: Last Vital Signs Pulse 89 07/14/24 10:27 BP 122/90 H 07/14/24 10:27 Pulse Ox 100 07/14/24 10:27 Oxygen Delivery Method Room Air 07/14/24 10:27 BMI result Body Mass Index 18.8 Tobacco/Smoking Status: Tobacco use Status Tobacco use date assessed 01/09/24 07/14/24 10:27 Patient Tobacco Use Status Never used Tobacco 07/14/24 10:27 e-Cigarette/Vaping Use Never Used 07/14/24 10:27 Thrive Assessment: Date of Thrive Assessment Date Thrive assessed 12/26/23 07/14/24 10:27 Const General: cooperative, comfortable, no acute distress and alert Neck Neck: Yes no lymphadenopathy Thyroid: Thyroid normal Resp Effort & Inspection: normal respiratory effort Auscultation: clear to auscultation bilaterally Percussion: percussion normal Cardio Jugular venous distension: no JVD Palpation: normal PMI Rate: regular rate Rhythm: regular rhythm Heart sounds: S1 normal heart sound present and S2 normal heart sound present GI Inspection: Yes normal to inspection Palpation (GI): No hepatosplenomegaly present Skin General skin exam: no rashes or lesions noted Extrem General: Yes no clubbing, cyanosis or edema Coding Level of Care Code Est Pt Level 3 (55257) Diagnoses PTSD (post-traumatic stress disorder) F43.10 Assessment & Plan Assessment & Plan (1) PTSD (post-traumatic stress disorder): Code(s): F43.10 - Post-traumatic stress disorder, unspecified Category: Medical Plan: as per psychotherapist
== END 2024-07-14 10:42 | disposition home or self-care (01) ==
PROVIDERS: PCP Internal Medicine; Visit Provider Internal Medicine
DX: F43.10 Post-traumatic stress disorder, unspecified (principal)

== ENCOUNTER 2024-12-08 10:57 | Outpatient (AMB) | payer OTHER, SELFPAY ==
--- NOTE | 2024-12-08 11:00 | AM.OFFWIN_ITS ---
Intake Vital Signs 12/08/24 11:03 Weight 110 lb BP 108/70 Blood Pressure Location Lt brachial Position Sitting Pulse 85 Pulse Source Pulse Oximeter Pulse Oximetry (%) 98 Oxygen Delivery Method Room Air Intake Visit Reasons: EP ^BP 124/91 in morning, dizzy on/off Intake Note: Patient here for fluctuating BP over the past couple of weeks. Patient Tobacco Use Status: Never used Tobacco Allergies latex [LATEX] Allergy (Unknown, Verified 12/08/24 11:03) DIFF BREATHING Do you need a note to return to daycare/school/sports/work: No HPI HPI Comments History of Present Illness Details History of Present Illness - The patient is a 59-year-old female pr esenting with blood pressure fluctuations. - Reports of dizziness starting recently , associated with high dietary salt intake and subsequent elevated blood pressure readings of approximately 130/90 mmHg. - Denies chest pain, shortness of breath or headaches. - Dietary interventions included predomi nantly consuming vegetables and fruits, with brief dietary lapses leading to higher blood pressure readings. - Noted an elevated blood pressure of 14 2/91 mmHg after consuming specific foods such as [place] rice and beans, along with small portions of lasagna. - Morning and daytime blood pressure arvin iations were observed, with morning readings typically around 130/82 to 130/90 mmHg, and lower pressures during the day. - Concern due to variance from normal bl ood pressure of 108/70 mmHg. - Regular water intake reported and a ge nerally health-conscious lifestyle maintained. Physical Exam General: Cooperative, healthy appearing, comfortable, no acute distress and well developed Orientation: Patient oriented x3 Limitations: No limitations Head: Normal to inspection Ears: Hearing grossly normal bilaterally Nose: Normal External nose present Face and sinus: Normal facial exam Eyes: Appearance normal, both eyes and all related structures Neck: Normal visual inspection and Yes full ROM Respiratory: Normal respiratory effort and able to speak in complete sentences. Skin: No rashes or lesions noted Neuro: Patient oriented x3 Extremities: Normal to inspection [facility] Medical History (Updated 07/14/24 @ 10:42 by Neto Bhandari MD) Asthma Right lower quadrant pain Anxiety Surgical History No pertinent past surgical history Family History Father No problems noted. Mother No problems noted. 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 Current occupational exposures/hazards: No Cognitive needs: No Hearing needs: No Vision needs: Yes (glasses) Review of Systems Const All systems reviewed & are unremarkable except as noted in HPI and below Physical Exam Vital Signs: Last Vital Signs Pulse 85 12/08/24 11:03 BP 108/70 12/08/24 11:03 Pulse Ox 98 12/08/24 11:03 Oxygen Delivery Method Room Air 12/08/24 11:03 Assessment & Plan Assessment & Plan (1) Dizziness: Code(s): R42 - Dizziness and giddiness Plan: For blood pressure fluctuations, I confirmed that her readings remained within an acceptable range generally below 140/90 mmHg, attributing variability to recent high-salt dietary choices. Recommended dietary modifications with emphasis on avoiding excessive processed foods while maintaining hydration. Suggested salt intake if blood pressure drops below 90/60 mmHg to prevent dizziness. Advised if blood pressure remains consistently above 140/90 mmHg, to consult Dr. Valdez. Current strategies are deemed adequate pending monitoring of blood pressure trends. Patient was informed and verbally consented to the use of an ambient scribe for clinic note documentation during this visit. Coding Level of Care Code Est Pt Level 3 (72424) Diagnoses Dizziness R42
[2024-12-08 11:03] VITALS: BP 108/70; PULSE 85; O2SAT 98
== END 2024-12-08 11:27 | disposition home or self-care (01) ==
PROVIDERS: PCP Internal Medicine; Visit Provider Physician Assistant
DX: R42 Dizziness and giddiness (principal)

== ENCOUNTER → 2024-12-08 10:57 | Outpatient (BNVA) | payer OTHER, SELFPAY | PROVIDERS: PCP Internal Medicine; Visit Provider Physician Assistant ==

== ENCOUNTER 2024-12-16 11:09 | Outpatient (AMB) | payer OTHER, SELFPAY ==
--- NOTE | 2024-12-16 11:10 | A.OFFPC_ITS ---
Vital Signs 12/16/24 11:11 Height 5 ft 4.5 in Weight 110 lb BMI 18.6 BP 112/86 Blood Pressure Location Lt brachial Position Sitting Intake Visit Reasons: blood pressure is high Caustic Mixer Required: No Accompanied by: Self / Same As Patient Allergies latex [LATEX] Allergy (Unknown, Verified 12/16/24 11:21) DIFF BREATHING Tobacco use date assessed: 12/16/24 Dental Screening Dental Screen Date: 12/16/24 Did you have a dental visit in the last 12 months?: No Did you have a dental problem in the last 6 months where you did not have access to dental care?: No Was dental information given to patient?: Patient has dentist HPI HPI Comments History of Present Illness Details The patient is a 59-year-old female presenting for blood pressure checkup. She has a notable medical history of an internal carotid artery aneurysm, which was surgically repaired with coil placement last year. The procedure was performed at [facility] and involved placement of a coil behind her eyes. Since her recovery, she has been on baby aspirin and is no longer on blood thinners as of last month. She reported previous incidences of slightly elevated cholesterol, which were not alarming enough to require medication, as she leads a lifestyle involving consuming one meal per day. Nevertheless, we will conduct a fasting lipid profile for reassessment. The patient abstained from medical screenings, such as mammograms and Pap smears, over the last year due to her condition and blood thinner therapy. Her recent discontinuation of blood thinners enables us to proceed with these evalua tions. She is amenable to using Cologuard for colorectal cancer screening, thus bypassing a formal colonoscopy. [facility] Medical History (Updated 12/16/24 @ 11:40 by Gail Yanes MD) Brain aneurysm Asthma Right lower quadrant pain Anxiety Surgical History (Updated 12/16/24 @ 11:25 by Gail Yanes MD) Status post aneurysm repair Family History (Updated 12/16/24 @ 11:26 by Gail Yanes MD) Father Prostate cancer Mother Myocardial infarction Social History (Updated 12/16/24 @ 11:27 by Gail Yanes MD) Housing: Apartment Alcohol intake: current Alcohol intake frequency: a few times a month Alcohol type: wine and hard liquor Patient Tobacco Use Status: Never used Tobacco e-Cigarette/Vaping Use: Never Used Second Hand Smoke Exposure: No service: No Current occupational status: employed 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 1. Little interest or pleasure in doing things: not at all 2. Feeling down, depressed, or hopeless: not at all 3. Trouble falling or staying asleep, or sleeping too much: not at all 4. Feeling tired or having little energy: not at all 5. Poor appetite or overeating: not at all 6. Feeling bad about yourself - or that you are a failure or have let yourself or your family down: not at all 7. Trouble concentrating on things, such as reading the newspaper or watching television: not at all 8. Moving or speaking so slowly that other people could have noticed. Or the opposite - being so fidgety or restless that you have been moving around a lot more than usual: not at all 9. Thoughts that you would be better off or of hurting yourself in some way : not at all Total score: 0 Depression Screening Interpretation: Negative Depression Screening Done: Yes 59029 - PHQ-9 Billing: Yes Source: Developed by Drs. Bryan Marx, Ann Calero, Ankur Kaur and colleagues, with an educational faby from [employer]. Thrive Questionnaire Date Thrive assessed: 12/16/24 I am a: Patient What is your living situation today?: I have a steady place to live Within the past 12 months, did the food you bought not last and you didn't have the money to get more?: I choose not to answer this question Within the past 12 months, did you worry whether your food would run out before you got money to buy more?: Never true Do you have trouble paying for medicines?: Yes Do you have trouble getting transportation to medical appointments?: No Do you have trouble paying your heating and electricity bill?: No Do you have trouble taking care of your child, family member or friend?: No Do you have trouble with day-to-day activities such as bathing, preparing meals, shopping, managing finances, etc.?: No Are you currently unemployed and looking for a job?: No Are you interested in more education?: No Please select the resources that you would like help with: None Currently or been in a relationship where the following occur: No concerns reported THRIVE Score: 0 AUDIT C Alcohol Use Questionnaire (AUDIT-C) 1. How often do you have a drink containing alcohol?: Never Total Score: 0 Score Reviewed/Action Taken: No SHAYY-7 AMB Questionnaire SHAYY-7 Date SHAYY - 7 assessed: 12/16/24 Feeling nervous, anxious, or on edge: 0 = Not at all Not being able to stop or control worryin = Not at all Worrying too much about different things: 0 = Not at all Trouble relaxin = Not at all Being so restless that it is hard to sit still: 0 = Not at all Becoming easily annoyed or irritable: 0 = Not at all Feeling afraid as if something awful might happen: 0 = Not at all Total SHAYY-7 score (0-4 normal; 5-9 mild; 10-14 moderate; 15-21 severe): 0 Source: Developed by Drs. Bryan Marx, Ann Calero, Ankur Kaur and colleagues, with an educational faby from [employer]. SHAYY-7 Assessment Billing SHAYY-7 Assessment Tool: SHAYY-7 Assessment 33972 Review of Systems Const All systems reviewed & are unremarkable except as noted in HPI and below Card Denies chest pain at rest, Denies chest pain with activity, Denies edema, Denies irregular heart rhythm, Denies claudication, Denies dyspnea, Denies dyspnea on exertion, Denies orthopnea, Denies paroxysmal nocturnal dyspnea and Denies slow heart rate Resp Denies cough, Denies dyspnea and Denies dyspnea on exertion GI Denies abdominal pain, Denies change in bowel habits, Denies excessive flatus, Denies nausea and Denies vomiting Physical exam (Primary Care) Vital Signs: Last Vital Signs BP 112/86 12/16/24 11:11 BMI result Body Mass Index 18.6 Tobacco/Smoking Status: Tobacco use Status Tobacco use date assessed 12/16/24 12/16/24 11:16 Patient Tobacco Use Status Never used Tobacco 12/16/24 11:16 e-Cigarette/Vaping Use Never Used 12/16/24 11:16 PHQ-9: PHQ-9 Score PHQ-9: Total score 0 12/16/24 11:16 Depression Screening Interpretation: Negative Thrive Assessment: Date of Thrive Assessment Date Thrive assessed 12/16/24 12/16/24 11:16 Currently or been in a relationship where the following occur: No concerns reported Resp Effort & Inspection: normal respiratory effort Auscultation: clear to auscultation bilaterally Cardio Jugular venous distension: no JVD Rate: regular rate Rhythm: regular rhythm Heart sounds: S1 normal heart sound present and S2 normal heart sound present Extrem General: Yes full ROM Coding Level of Care Code Est Pt Level 3 (33722) Complex EM visit Add On G2211 Diagnoses Dyslipidemia E78.5 Additional Codes PHQ-9 - 14651 - PHQ-9 Billing: Yes ([id number]) SHAYY-7 Assessment Billing - SHAYY-7 Assessment Tool: SHAYY-7 Assessment 87633 ([id number]) Time Spent (min) 19 Assessment & Plan Assessment & Plan (1) Dyslipidemia: Code(s): E78.5 - Hyperlipidemia, unspecified Category: Medical Plan The patient will undergo a fasting lipid profile to reassess her cholesterol levels. Routine screenings including mammography and Pap smears will be arranged, as the patient recently discontinued blood thinners. Her aneurysm repair appears stable, and she continues to manage her cardio risk factors with baby aspirin. She consented to Cologuard testing for colorectal cancer screening. Regular blood pressure monitoring is advised, and dietary adherence is encouraged for cholesterol control. Patient was informed and verbally consented to the use of an ambient scribe for clinic note documentation during this visit. I clarified to the patient the importance of resuming routine health checks, including mammograms and Pap smears, now that she is off blood thinners. We discussed the prior elevated cholesterol levels; fasting labs will reassess this. I offered Cologuard as a convenient home-based screening alternative after discussing its ease and non-invasiveness compared to colonoscopy. The patient accepted this plan willingly. We also reviewed her low blood pressure records and lifestyle factors that previously contributed to temporary elevations, e nsuring she continues home monitoring to maintain stability. Orders: Orders Comprehensive [place]. Panel Fast Today E78.5 - Hyperlipidemia, unspecified Lipid Panel Today E78.5 - Hyperlipidemia, unspecified Referrals Cologuard Test Z12.11 - Encounter for screening for malignant neoplasm of colon, Z12.12 - Encounter for screening for malignant neoplasm of rectum Patient Instructions: - Continue monitoring blood pressure at home regularly. - Undergo fasting lab tests for cholesterol reassessment. - Schedule and attend mammogram and Pap smear screenings. - Use Cologuard for colorectal cancer screening. - Maintain current diet habits focusing on low cholesterol intake. - Limit alcohol consumption to current low levels.
[2024-12-16 11:11] VITALS: BP 112/86; BMI 18.6
== END 2024-12-16 11:32 | disposition home or self-care (01) ==
LOC: HO.HMCH 11:10
PROVIDERS: PCP Internal Medicine; Visit Provider Internal Medicine
DX: E78.5 Hyperlipidemia, unspecified (principal)

== ENCOUNTER → 2024-12-16 11:09 | Outpatient (BNVA) | payer OTHER, SELFPAY | PROVIDERS: PCP Internal Medicine; Visit Provider Internal Medicine | DX: E78.5 Hyperlipidemia, unspecified (principal); Z79.82 Long term (current) use of aspirin | CPT/HCPCS: 96127 ==

== ENCOUNTER → 2025-01-19 11:01 | Outpatient (BNVA) | payer OTHER, SELFPAY | PROVIDERS: PCP Internal Medicine; Visit Provider Physician Assistant Medical | DX: S39.012A Strain of muscle, fascia and tendon of lower back, initial encounter (principal); X50.0XXA Overexertion from strenuous movement or load, initial encounter | CPT/HCPCS: 99203 ==

== ENCOUNTER → 2025-01-22 09:33 | Outpatient (BNVA) | payer OTHER, SELFPAY | PROVIDERS: PCP Internal Medicine; Visit Provider Physician Assistant Medical | DX: S39.012A Strain of muscle, fascia and tendon of lower back, initial encounter (principal); S29.012A Strain of muscle and tendon of back wall of thorax, initial encounter; X50.0XXA Overexertion from strenuous movement or load, initial encounter | CPT/HCPCS: 99213 ==

== ENCOUNTER → 2025-02-05 09:41 | Outpatient (BNVA) | payer OTHER, SELFPAY | PROVIDERS: PCP Internal Medicine; Visit Provider Physician Assistant Medical | DX: S39.012A Strain of muscle, fascia and tendon of lower back, initial encounter (principal); X50.0XXA Overexertion from strenuous movement or load, initial encounter | CPT/HCPCS: 99213 ==

== ENCOUNTER → 2025-02-26 09:38 | Outpatient (BNVA) | payer OTHER, SELFPAY | PROVIDERS: PCP Internal Medicine; Visit Provider Physician Assistant Medical | DX: S39.012D Strain of muscle, fascia and tendon of lower back, subsequent encounter (principal); X50.0XXD Overexertion from strenuous movement or load, subsequent encounter; M53.3 Sacrococcygeal disorders, not elsewhere classified | CPT/HCPCS: 99213 ==

== ENCOUNTER → 2025-03-09 13:39 | Outpatient (BNVA) | payer OTHER, SELFPAY | PROVIDERS: PCP Internal Medicine; Visit Provider Physician Assistant Medical | DX: S39.012D Strain of muscle, fascia and tendon of lower back, subsequent encounter (principal); X50.0XXD Overexertion from strenuous movement or load, subsequent encounter; M53.3 Sacrococcygeal disorders, not elsewhere classified | CPT/HCPCS: 99213 ==

== ENCOUNTER 2025-03-11 10:00 | Outpatient (RCR) | payer OTHER, SELFPAY ==
--- NOTE | 2025-02-02 11:50 | MHC.PT.EP ---
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 OBJECTIVE FINDINGS INCLUDE LIMITED TRUNK AROM, DECR LEs FLEXIB AND STRENGTH (ESPEC WEAKNESS IN HIP IR/ER) , DECR POSTURAL AWARENESS, AND PAIN IN HER MOHINI THORACOLUMB-> SACRAL REGION. SHE DENIES BOWEL/ BLADDER SIGNS OR SXS AT THIS TIME. FUNCTIONALLY, THE Pt HAS DECR ANGELIC TO SITTING, BENDING, LYING DOWN, LIFTING ANYTHING > 5 LBS, AND SHE IS UNABLE TO EXERCISE OR WORK. SHE IS MOTIVATED FOR PT AND IS EAGER TO RTW- SHE WOULD LIKE TO PROCEED W PT POC. Frequency and Duration: The patient will be seen 2 x WK x 4 WKS Short Term Goals: DECR THORACOLUMB-> SACRAL PAIN TO 2-3/10 INITIATE HEP-> LEs FLEXIB, LUMBOPELVIC / CORE STABILIZATION Pt INDEP SELF CORREECTION OF POSTURE IN VARIED POSES [employer] Goals: Pt INDEP W HEP AND SELF SX MGMT TECHN Pt PERF 3:3 SIM ADLs OR WORK TASKS W PROPER BODY MECH IMPROVED OSWESTRY, AT EVAL 20/50 HS FLEXIB IMPROVED MOHINI WELL HIP IR/ER STRENGTH IMPROVED BY 1/2 - 1 GRADE Treatment Plan: Modalities to reduce pain, spasms and effusion. Manual therapy to restore motion and function. Therapeutic exercise to improve strength and flexibility. Neuromuscular re-education for posture and balance. Therapeutic activities to return to functional activities of daily living. Electronically signed by: CAMILLE SOSA,PT Please sign and return to therapist. Thank you for your referral.
--- NOTE | 2025-03-11 12:09 | MHC.PT.DC ---
[facility] [place] Office [place] Office [place] Office [address] Dale James [address] [phone] F: [phone] F: [phone] F: [phone] F: [phone] Physical Therapy Discharge Report Diagnosis: ACUTE LS STRAIN, THORACIC STRAIN Date of Surgery: Date of Evaluation: 02/02/25 Date of Discharge: 03/11/25 Treatments to Date: 9 Cancellations to Date: 3 No Shows to Date: Discharge Status: Improved Function Recommend MD Follow-up Discharge Summary: ANIA PRESENTED TODAY STATING SHE RE-INJURED HERSELF LAST SUN AFTER RTW SUNDAY- SHE HAD SOME TTP Rt SI Jt AREA, AND DECR TRUNK FLEXION DUE TO TISSUE TENSION IN LS REGION, LEVEL ILIAC CREST, SHE REQ MOD VC FOR STRETCHING/ EXER FORM TODAY WELL POSTURAL CORRECTION IN SITTING ... SHE REQ VC/TC TO REDUCE HABITUAL TRUNK FLEX VS INCORPORATING FUNCTIONAL SQUAT INTO ADLs. ANIA STATED SHE WAS TRANSFERRING HER CARE TO HER PRIMARY MD, DR OROPEZA, SO SHE IS THEREFORE D/C AT THIS TIME FROM CURRENT PT- WE HAVE ESTABLISHED A THOROUGH HEP, THE Pt HAS BEEN EDUC RE AND SIMUL BODY [facility] [employer]: [employer] WORK [employer]KS...BUT DUE TO RECENT RE-INJURY, THAT HAS INFLUENCED HER CURRENT STATUS Electronically signed by: CAMILLE SOSA, PT Please sign and return to therapist. Thank you for your referral.
== END 2025-03-11 12:10 | disposition home or self-care (01) ==
LOC: HO.PT 10:00
PROVIDERS: PCP Internal Medicine; Visit Provider Physician Assistant Medical
DX: S39.012D Strain of muscle, fascia and tendon of lower back, subsequent encounter (principal); S29.012D Strain of muscle and tendon of back wall of thorax, subsequent encounter
CPT/HCPCS: 97110; 97140; 97162; 97530

== ENCOUNTER → 2025-03-12 11:41 | Outpatient (BNVA) | payer OTHER, SELFPAY | PROVIDERS: PCP Internal Medicine; Visit Provider Physician Assistant Medical | DX: M53.3 Sacrococcygeal disorders, not elsewhere classified (principal); M54.50 Low back pain, unspecified | CPT/HCPCS: 99213 ==

== ENCOUNTER 2025-03-19 10:43 | Outpatient (REF) | payer OTHER, SELFPAY ==
--- NOTE | ~2025-03-19 | XR_ITS ---
EXAMINATION: XR FOOT, LEFT CLINICAL INFORMATION: M79.672 - Pain in left foot COMPARISON: None available. TECHNIQUE: AP, lateral, and oblique views of the left foot. FINDINGS: The bones and soft tissues are normal. No fracture. Alignment is anatomic. Joint spaces are maintained. XR/XR foot LT min 3V IMPRESSION: Normal left foot. Electronically signed by: Galindo Khan MD 03/19/2025 12:07 PM EDT
--- NOTE | ~2025-03-19 | XR_ITS ---
EXAMINATION: XR LUMBOSACRAL SPINE CLINICAL INFORMATION: M54.50 - Low back pain, unspecified COMPARISON: None available. TECHNIQUE: Three views of the lumbosacral spine. FINDINGS: The vertebral bodies and posterior elements are normal. The disc spaces are preserved and the vertebral alignment is normal. The paraspinal soft tissues are normal. XR/XR lumbar spine 2-3V IMPRESSION: Unremarkable examination. Electronically signed by: Luis Cruz MD 03/19/2025 12:05 PM EDT
--- NOTE | ~2025-03-19 | XR_ITS ---
EXAMINATION: XR THORACIC SPINE CLINICAL INFORMATION: M54.6 - Pain in thoracic spine COMPARISON: None available. TECHNIQUE: 3 views of the thoracic spine were obtained. FINDINGS: There is mild levoscoliosis of the thoracolumbar junction. Vertebral body height and alignment is preserved. Disc spaces are preserved XR/XR thoracic spine 2V IMPRESSION: Mild levoscoliosis of the thoracal lumbar junction. Electronically signed by: Luis Cruz MD 03/19/2025 12:05 PM EDT
== END 2025-03-19 10:44 | disposition home or self-care (01) ==
LOC: HO.XRAY 10:43
PROVIDERS: PCP Internal Medicine; Visit Provider Internal Medicine
DX: M54.6 Pain in thoracic spine (principal); M54.50 Low back pain, unspecified; M79.605 Pain in left leg
CPT/HCPCS: 72070; 72100; 73630; 99212

== ENCOUNTER 2025-03-19 10:43 | Outpatient (AMB) | payer OTHER, SELFPAY ==
--- NOTE | 2025-03-19 10:47 | A.OFFPC_ITS ---
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 The pain is described as severe and has been exacerbated by prolonged sitting and physical activity, such as lifting laundry and assisting patients. The patient reports thoracic spine pain extending to the lower back, affecting her ability to sit for long periods. She also experiences pain in the left leg, particularly under the second to last toe, which is becoming crooked and stiff. The patient has undergone two to three weeks of physical therapy, which provided some relief, but the pain persists. The pain involves the thoracic spine and the lumbar spine and does radiates to both legs more prominent on the left leg. Associated with left leg numbness. No fever, bowel or bladder incontinence. 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 Current occupational exposures/hazards: No Cognitive needs: No Hearing needs: No Vision needs: Yes (glasses) Questionnaire Thrive Questionnaire Date Thrive assessed: 12/16/24 I am a: Patient What is your living situation today?: I have a steady place to live Within the past 12 months, did the food you bought not last and you didn't have the money to get more?: I choose not to answer this question Within the past 12 months, did you worry whether your food would run out before you got money to buy more?: Never true Do you have trouble paying for medicines?: Yes Do you have trouble getting transportation to medical appointments?: No Do you have trouble paying your heating and electricity bill?: No Do you have trouble taking care of your child, family member or friend?: No Do you have trouble with day-to-day activities such as bathing, preparing meals, shopping, managing finances, etc.?: No Are you currently unemployed and looking for a job?: No Are you interested in more education?: No Please select the resources that you would like help with: None Currently or been in a relationship where the following occur: No concerns reported THRIVE Score: 0 SHAYY-7 AMB Questionnaire SHAYY-7 Date SHAYY - 7 assessed: 12/16/24 Source: Developed by Drs. Bryan Marx, Ann Calero, Ankur Kaur and colleagues, with an educational faby from [employer]. Review of Systems Const All systems reviewed & are unremarkable except as noted in HPI and below Card Denies chest pain at rest, Denies chest pain with activity, Denies edema, Denies irregular heart rhythm, Denies claudication, Denies dyspnea, Denies dyspnea on exertion, Denies orthopnea, Denies paroxysmal nocturnal dyspnea and Denies slow heart rate Resp Denies cough, Denies dyspnea and Denies dyspnea on exertion GI Denies abdominal pain, Denies change in bowel habits, Denies excessive flatus, Denies nausea and Denies vomiting Denies urinary incontinence, Denies urinary hesitancy and Denies urinary urgency Musc Denies abnormal gait, Reports back pain, Denies atrophy, Denies deformity, Reports arthralgias and Denies limited range of motion Skin/Breast Denies bleeding lesions, Denies changing lesions and Denies rash Neuro Denies abnormal gait and Denies lack of coordination Physical exam (Primary Care) Vital Signs: Last Vital Signs BP 126/84 03/19/25 10:48 BMI result Body Mass Index 18.8 Tobacco/Smoking Status: Tobacco use Status Tobacco use date assessed 12/16/24 03/19/25 10:55 Patient Tobacco Use Status Never used Tobacco 03/19/25 10:55 e-Cigarette/Vaping Use Never Used 03/19/25 10:55 Thrive Assessment: Date of Thrive Assessment Date Thrive assessed 12/16/24 03/19/25 10:55 Currently or been in a relationship where the following occur: No concerns reported Resp Effort & Inspection: normal respiratory effort Auscultation: clear to auscultation bilaterally Cardio Jugular venous distension: no JVD Rate: regular rate Rhythm: regular rhythm Heart sounds: S1 normal heart sound present and S2 normal heart sound present Back/Spine/Pelvis Thoracic/Lumbar Spine: straight leg raise negative bilaterally Coding Level of Care Code Est Pt Level 3 (30707) Complex EM visit Add On G2211 Diagnoses Thoracic spine pain M54.6 Lumbar pain M54.50 Time Spent (min) 19 Assessment & Plan Assessment & Plan (1) Thoracic spine pain: Code(s): M54.6 - Pain in thoracic spine Category: Medical (2) Lumbar pain: Code(s): M54.50 - Low back pain, unspecified Category: Medical Plan The plan includes obtaining x-rays of the thoracic spine, lumbar spine, and left foot to assess the extent of the musculoskeletal issues. The patient is advised to continue physical therapy for at least six weeks to improve her back and leg condition. Pain management will be addressed with appropriate medication, and the patient is advised to avoid activities that exacerbate her symptoms. For hair thinning, the patient is informed about the potential effects of oral minoxidil but is cautioned about its side effects. The patient is encouraged to monitor her cholesterol levels and consider dietary modifications to manage her cholesterol. Patient was informed and verbally consented to the use of an ambient scribe for clinic note documentation during this visit. Orders: Orders PT Evaluation and Treatment Today M54.50 - Low back pain, unspecified, M54.6 - Pain in thoracic spine XR lumbar spine 2-3V Today M54.50 - Low back pain, unspecified XR thoracic spine 2V Today M54.6 - Pain in thoracic spine
[2025-03-19 10:48] VITALS: BP 126/84; BMI 18.8
== END 2025-03-19 11:20 | disposition home or self-care (01) ==
PROVIDERS: PCP Internal Medicine; Visit Provider Internal Medicine
DX: M54.6 Pain in thoracic spine (principal); M54.50 Low back pain, unspecified

== ENCOUNTER → 2025-03-19 11:38 | Outpatient (BNV) | payer OTHER, SELFPAY | PROVIDERS: PCP Internal Medicine; Visit Provider Radiology Diagnostic Radiology | DX: M54.50 Low back pain, unspecified (principal); M41.85 Other forms of scoliosis, thoracolumbar region; M79.672 Pain in left foot | CPT/HCPCS: 72070; 72100; 73630 ==

== ENCOUNTER 2025-04-28 14:57 | Outpatient (AMB) | payer OTHER, SELFPAY ==
[2025-04-28 14:58] VITALS: BP 140/70; PULSE 96; O2SAT 100; BMI 19.3
--- NOTE | 2025-04-28 14:58 | MHC.PC.OV ---
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 Required: No Accompanied by: Self / Same As Patient Allergies latex (LATEX) Allergy (Unknown, Verified 04/28/25 15:15) DIFF BREATHING Medication List - Last Reconciled 04/28/25 by Gail Yanes MD aspirin 81 mg PO DAILY magnesium oxide 400 mg PO BEDTIME PRN Tobacco use date assessed: 12/16/24 Dental Screening Dental Screen Date: 04/28/25 Did you have a dental visit in the last 12 months?: Yes Did you have a dental problem in the last 6 months where you did not have access to dental care?: No Was dental information given to patient?: Patient has dentist HPI HPI Comments History of Present Illness Details The patient is a 59-year-old female presenting with memory problems and anxiety following a brain aneurysm repair. The patient reports persistent memory issues that began after her brain aneurysm repair in February 2024. She experiences difficulty multitasking and often forgets tasks, particularly those involving computer work, which has impacted her job performance. Anxiety exacerbates her memory problems, and she has not yet seen a neurologist for further evaluation. The patient has a history of elevated cholesterol, which was noted to be slightly elevated during her last check-up. She is aware that this is unrelated to her memory issues but wishes to monitor it. Her blood pressure has been fluctuating, with readings raising concerns about potential hypertension. She is scheduled for blood pressure monitoring and dietary counseling. 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 1. Little interest or pleasure in doing things: not at all 2. Feeling down, depressed, or hopeless: not at all 3. Trouble falling or staying asleep, or sleeping too much: not at all 4. Feeling tired or having little energy: not at all 5. Poor appetite or overeating: not at all 6. Feeling bad about yourself - or that you are a failure or have let yourself or your family down: not at all 7. Trouble concentrating on things, such as reading the newspaper or watching television: not at all 8. Moving or speaking so slowly that other people could have noticed. Or the opposite - being so fidgety or restless that you have been moving around a lot more than usual: not at all 9. Thoughts that you would be better off or of hurting yourself in some way: not at all Total score: 0 Depression Screening Interpretation: Negative Depression Screening Done: Yes 72487 - PHQ-9 Billing: Yes Source: Developed by Drs. Bryan Marx, Ann Calero, Ankur Kaur and colleagues, with an educational faby from [employer]. Thrive Questionnaire Date Thrive assessed: 04/28/25 I am a: Patient What is your living situation today?: I have a steady place to live Within the past 12 months, did the food you bought not last and you didn't have the money to get more?: I choose not to answer this question Within the past 12 months, did you worry whether your food would run out before you got money to buy more?: Never true Do you have trouble paying for medicines?: Yes Do you have trouble getting transportation to medical appointments?: No Do you have trouble paying your heating and electricity bill?: No Do you have trouble taking care of your child, family member or friend?: No Do you have trouble with day-to-day activities such as bathing, preparing meals, shopping, managing finances, etc.?: No Are you currently unemployed and looking for a job?: No Are you interested in more education?: No Please select the resources that you would like help with: None Currently or been in a relationship where the following occur: No concerns reported THRIVE Score: 0 AUDIT C Alcohol Use Questionnaire (AUDIT-C) 1. How often do you have a drink containing alcohol?: Never Total Score: 0 Score Reviewed/Action Taken: No SHAYY-7 AMB Questionnaire SHAYY-7 Date SHAYY - 7 assessed: 04/28/25 Feeling nervous, anxious, or on edge: 2 = More than half the days Not being able to stop or control worryin = More than half the days Worrying too much about different things: 2 = More than half the days Trouble relaxin = More than half the days Being so restless that it is hard to sit still: 0 = Not at all Becoming easily annoyed or irritable: 0 = Not at all Feeling afraid as if something awful might happen: 0 = Not at all Total SHAYY-7 score (0-4 normal; 5-9 mild; 10-14 moderate; 15-21 severe): 8 Source: Developed by Drs. Bryan Marx, Ann Calero, Ankur Kaur and colleagues, with an educational faby from [employer]. SHAYY-7 Assessment Billing SHAYY-7 Assessment Tool: SHAYY-7 Assessment 08600 Review of Systems Const All systems reviewed & are unremarkable except as noted in HPI and below Card Denies chest pain at rest, Denies chest pain with activity, Denies edema, Denies irregular heart rhythm, Denies claudication, Denies dyspnea, Denies dyspnea on exertion, Denies orthopnea, Denies paroxysmal nocturnal dyspnea and Denies slow heart rate Resp Denies cough, Denies dyspnea and Denies dyspnea on exertion GI Denies abdominal pain, Denies change in bowel habits, Denies excessive flatus, Denies nausea and Denies vomiting Denies urinary incontinence, Denies urinary hesitancy and Denies urinary urgency Musc Denies atrophy, Denies deformity and Denies limited range of motion Skin/Breast Denies bleeding lesions, Denies changing lesions and Denies rash Physical exam (Primary Care) Vital Signs: Last Vital Signs Pulse 96 04/28/25 14:58 BP 140/70 H 04/28/25 14:58 Pulse Ox 100 04/28/25 14:58 Oxygen Delivery Method Room Air 04/28/25 14:58 BMI result Body Mass Index 19.3 Tobacco/Smoking Status: Tobacco use Status Tobacco use date assessed 12/16/24 04/28/25 15:04 Patient Tobacco Use Status Never used Tobacco 04/28/25 15:04 e-Cigarette/Vaping Use Never Used 04/28/25 15:04 PHQ-9: PHQ-9 Score PHQ-9: Total score 0 04/28/25 15:20 Depression Screening Interpretation: Negative Thrive Assessment: Date of Thrive Assessment Date Thrive assessed 04/28/25 04/28/25 15:04 Currently or been in a relationship where the following occur: No concerns reported Resp Effort & Inspection: normal respiratory effort Auscultation: clear to auscultation bilaterally Cardio Jugular venous distension: no JVD Rate: regular rate Rhythm: regular rhythm Heart sounds: S1 normal heart sound present and S2 normal heart sound present Extrem General: Yes full ROM Coding Level of Care Code Est Pt Level 4 (70484) Complex EM visit Add On G2211 Diagnoses Cognitive impairment R41.89 Dyslipidemia E78.5 Anxiety F41.9 Additional Codes SHAYY-7 Assessment Billing - SHAYY-7 Assessment Tool: SHAYY-7 Assessment 53845 ([id number]) PHQ-9 - 21531 - PHQ-9 Billing: Yes ([id number]) Time Spent (min) 21 Assessment & Plan Assessment & Plan (1) Cognitive impairment: Code(s): R41.89 - Other symptoms and signs involving cognitive functions and awareness Category: Medical (2) Dyslipidemia: Code(s): E78.5 - Hyperlipidemia, unspecified Category: Medical (3) Anxiety: Code(s): F41.9 - Anxiety disorder, unspecified Category: Medical Plan Plan Patient was informed and verbally consented to the use of an ambient scribe for clinic note documentation during this visit. 1. Other amnesia R41.3 The patient will be referred to a neurologist for further evaluation of her memory problems, which began after her brain aneurysm repair. Blood work will be ordered to assess for potential contributing factors, including thyroid function and vitamin B12 levels. 2. Elevated blood-pressure reading, without diagnosis of hypertension R03.0 The patient will undergo blood pressure monitoring and dietary counseling to manage her borderline hypertension. Follow-up with the nurse navigator is planned to assess the need for antihypertensive medication. 3. Pure hypercholesterolemia, unspecified E78.00 The patient's cholesterol levels will be re-evaluated with a non-fasting lipid panel, as the previous order . Orders: Orders Vitamin B12 and Folate Today E53.8 - Deficiency of other specified B group vitamins, R41.89 - Other symptoms and signs involving cognitive functions and awareness Thyroid Stimulating Hormone Today R41.89 - Other symptoms and signs involving cognitive functions and awareness Complete Blood Count Auto Diff Today R41.89 - Other symptoms and signs involving cognitive functions and awareness Comprehensive Met. Panel Today R41.89 - Other symptoms and signs involving cognitive functions and awareness Syphilis Screen Today R41.89 - Other symptoms and signs involving cognitive functions and awareness Lipid Panel Today E78.5 - Hyperlipidemia, unspecified Referrals Neurology Referral R41.89 - Other symptoms and signs involving cognitive functions and awareness
== END 2025-04-28 15:29 | disposition home or self-care (01) ==
LOC: HO.HMCH 14:57
PROVIDERS: PCP Internal Medicine; Visit Provider Internal Medicine
DX: R41.89 Other symptoms and signs involving cognitive functions and awareness (principal); E78.5 Hyperlipidemia, unspecified; F41.9 Anxiety disorder, unspecified

== ENCOUNTER → 2025-04-28 14:57 | Outpatient (BNVA) | payer OTHER, SELFPAY | PROVIDERS: PCP Internal Medicine; Visit Provider Internal Medicine | DX: R03.0 Elevated blood-pressure reading, without diagnosis of hypertension (principal); F41.9 Anxiety disorder, unspecified; E78.00 Pure hypercholesterolemia, unspecified; R41.89 Other symptoms and signs involving cognitive functions and awareness; E78.5 Hyperlipidemia, unspecified; E53.8 Deficiency of other specified B group vitamins | CPT/HCPCS: 96127; 99212 ==

== ENCOUNTER 2025-04-29 11:43 | Outpatient (REF) | payer OTHER, SELFPAY ==
[2025-04-29 12:03] LABS: MANUAL DIFF FLAG NO
[2025-04-29 12:39] LABS: Hematocrit 39.7 % (37.0-47.0); Hemoglobin 13.4 g/dl (12.0-16.0); Imm Gran Abs Auto 0.01 X10*3/uL (0.00-0.03); Imm Gran Pct Auto 0.2 % (0.0-0.4); Lymphocytes Absolute Auto 1.5 X10*3/uL (1.2-4.9); Mean Corpuscular HGB Conc 33.8 g/dl (31.0-35.0); Mean Corpuscular Hemoglobin 29.8 pg (27.0-33.0); Mean Corpuscular Volume 88.2 fL (80.0-98.0); NRBC Abs Auto 0.000 X10*3/uL (0.0-0.012); NRBC Pct Auto 0.0 /100WBC (0.0-0.2); Platelet Count 295 X10*3/uL (160-400); Red Blood Count 4.50 X10*6/uL (4.20-5.50); White Blood Count 4.3 X10*3/uL (4.8-10.8)
[2025-04-29 13:09] LABS: Alanine Aminotransferase 13 U/L (0-31); Albumin Level 4.2 g/dL (3.5-5.0); Alkaline Phosphatase 74 U/L (39-117); Anion Gap 11 (12-20); Aspartate Amino Transferase 22 U/L (5-31); Blood Urea Nitrogen 11 mg/dL (9-16); Calcium 9.3 mg/dL (8.4-10.2); Carbon Dioxide 27 mmol/L (22-29); Chloride 106 mmol/L (96-108); Cholesterol 211 mg/dL (<200); Estimated Glomerular Filt Rate > 60; HDL Cholesterol 87 mg/dL (>40); Potassium 4.1 mmol/L (3.3-5.1); Sodium 140 mmol/L (135-145); Total Protein 7.4 g/dL (6.5-8.0); Triglycerides 45 mg/dL (<150)
[2025-04-29 13:26] LABS: Thyroid Stimulating Hormone 1.02 uIU/mL (0.32-4.0)
[2025-04-29 13:35] LABS: Folate 13.5 ng/mL (> or = 4.0); Vitamin B12 989 pg/mL (200-900)
[2025-04-30 08:28] LABS: Syphilis Screen Nonreactive (Nonreactive)
== END 2025-04-29 11:44 | disposition home or self-care (01) ==
LOC: HO.LAB 11:43
PROVIDERS: PCP Internal Medicine; Visit Provider Internal Medicine
DX: E53.8 Deficiency of other specified B group vitamins (principal); E78.5 Hyperlipidemia, unspecified; R41.89 Other symptoms and signs involving cognitive functions and awareness
CPT/HCPCS: 36415; 80053; 80061; 82607; 82746; 84443; 85025; 86780

== ENCOUNTER 2025-05-06 12:41 | Outpatient (AMB) | payer OTHER, SELFPAY ==
[2025-05-06 12:45] VITALS: BP 110/60; PULSE 87; RESP 18; TEMP 36.2; O2SAT 97; BMI 18.8
--- NOTE | 2025-05-06 12:45 | A.OFFPC_ITS ---
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 The back pain began on January 17 while the patient was lifting heavy objects at work, including a patient weighing 403 pounds. The pain was initially severe, affecting both the upper and lower back, and was described as very tender. The patient underwent physical therapy, which has resulted in significant improvement. Currently, the patient reports no pain or tenderness in the back, indicating a successful recovery. 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 1. Little interest or pleasure in doing things: not at all 2. Feeling down, depressed, or hopeless: not at all 3. Trouble falling or staying asleep, or sleeping too much: not at all 4. Feeling tired or having little energy: not at all 5. Poor appetite or overeating: not at all 6. Feeling bad about yourself - or that you are a failure or have let yourself or your family down: not at all 7. Trouble concentrating on things, such as reading the newspaper or watching television: not at all 8. Moving or speaking so slowly that other people could have noticed. Or the opposite - being so fidgety or restless that you have been moving around a lot more than usual: not at all 9. Thoughts that you would be better off or of hurting yourself in some way: not at all Total score: 0 Depression Screening Interpretation: Negative Depression Screening Done: Yes 74073 - PHQ-9 Billing: Yes Source: Developed by Drs. Bryan Marx, Ann Calero, Ankur Kaur and colleagues, with an educational faby from [employer]. Thrive Questionnaire Date Thrive assessed: 04/28/25 I am a: Patient What is your living situation today?: I have a steady place to live Within the past 12 months, did the food you bought not last and you didn't have the money to get more?: I choose not to answer this question Within the past 12 months, did you worry whether your food would run out before you got money to buy more?: Never true Do you have trouble paying for medicines?: Yes Do you have trouble getting transportation to medical appointments?: No Do you have trouble paying your heating and electricity bill?: No Do you have trouble taking care of your child, family member or friend?: No Do you have trouble with day-to-day activities such as bathing, preparing meals, shopping, managing finances, etc.?: No Are you currently unemployed and looking for a job?: No Are you interested in more education?: No Please select the resources that you would like help with: None Currently or been in a relationship where the following occur: No concerns reported THRIVE Score: 0 AUDIT C Alcohol Use Questionnaire (AUDIT-C) 1. How often do you have a drink containing alcohol?: Never Total Score: 0 Score Reviewed/Action Taken: No SHAYY-7 AMB Questionnaire SHAYY-7 Date SHAYY - 7 assessed: 04/28/25 Feeling nervous, anxious, or on edge: 2 = More than half the days Not being able to stop or control worryin = More than half the days Worrying too much about different things: 2 = More than half the days Trouble relaxin = More than half the days Being so restless that it is hard to sit still: 0 = Not at all Becoming easily annoyed or irritable: 0 = Not at all Feeling afraid as if something awful might happen: 0 = Not at all Total SHAYY-7 score (0-4 normal; 5-9 mild; 10-14 moderate; 15-21 severe): 8 Source: Developed by Drs. Bryan Marx, Ann Calero, Ankur Kaur and colleagues, with an educational faby from [employer]. SHAYY-7 Assessment Billing SHAYY-7 Assessment Tool: SHAYY-7 Assessment 09626 Review of Systems Const All systems reviewed & are unremarkable except as noted in HPI and below Card Denies chest pain at rest, Denies chest pain with activity, Denies edema, Denies irregular heart rhythm, Denies claudication, Denies dyspnea, Denies dyspnea on exertion, Denies orthopnea, Denies paroxysmal nocturnal dyspnea and Denies slow heart rate Resp Denies cough, Denies dyspnea and Denies dyspnea on exertion GI Denies abdominal pain, Denies change in bowel habits, Denies excessive flatus, Denies nausea and Denies vomiting Physical exam (Primary Care) Vital Signs: Last Vital Signs Temp 97.1 F 05/06/25 12:45 Pulse 87 05/06/25 12:45 Resp 18 05/06/25 12:45 BP 110/60 05/06/25 12:45 Pulse Ox 97 05/06/25 12:45 Oxygen Delivery Method Room Air 05/06/25 12:45 BMI result Body Mass Index 18.8 Tobacco/Smoking Status: Tobacco use Status Tobacco use date assessed 05/06/25 05/06/25 12:51 Patient Tobacco Use Status Never used Tobacco 05/06/25 12:51 e-Cigarette/Vaping Use Never Used 05/06/25 12:51 PHQ-9: PHQ-9 Score PHQ-9: Total score 0 05/06/25 12:51 Depression Screening Interpretation: Negative Thrive Assessment: Date of Thrive Assessment Date Thrive assessed 04/28/25 05/06/25 12:51 Currently or been in a relationship where the following occur: No concerns reported Resp Effort & Inspection: normal respiratory effort Auscultation: clear to auscultation bilaterally Cardio Jugular venous distension: no JVD Rate: regular rate Rhythm: regular rhythm Heart sounds: S1 normal heart sound present and S2 normal heart sound present Extrem General: Yes full ROM Coding Level of Care Code Est Pt Level 3 (09375) Complex EM visit Add On G2211 Diagnoses Lumbar pain M54.50 Additional Codes SHAYY-7 Assessment Billing - SHAYY-7 Assessment Tool: SHAYY-7 Assessment 52960 ([id number]) PHQ-9 - 67604 - PHQ-9 Billing: Yes ([id number]) Time Spent (min) 19 Assessment & Plan Assessment & Plan (1) Lumbar pain: Code(s): M54.50 - Low back pain, unspecified Category: Medical Plan Plan Patient was informed and verbally consented to the use of an ambient scribe for clinic note documentation during this visit. 1. Back Pain The patient has experienced significant improvement in back pain following physical therapy. No further interventions are currently necessary as the patie nt reports no pain or tenderness. Medications: Refilled magnesium oxide This is a worker's comp claim 400 mg PO BEDTIME PRN 30 caps 0RF difficulty sleeping
== END 2025-05-06 13:01 | disposition home or self-care (01) ==
LOC: HO.HMCH 12:42
PROVIDERS: PCP Internal Medicine; Visit Provider Internal Medicine
DX: M54.50 Low back pain, unspecified (principal)

== ENCOUNTER → 2025-05-06 12:41 | Outpatient (BNVA) | payer OTHER, SELFPAY | PROVIDERS: PCP Internal Medicine; Visit Provider Internal Medicine | DX: M54.50 Low back pain, unspecified (principal) | CPT/HCPCS: 96127; 99212 ==

== ENCOUNTER → 2025-05-22 12:54 | Outpatient (BNVA) | payer OTHER, SELFPAY | PROVIDERS: PCP Internal Medicine | DX: I10 Essential (primary) hypertension (principal) | CPT/HCPCS: 99211 ==

== ENCOUNTER → 2025-05-29 10:59 | Outpatient (BNVA) | payer SELFPAY | PROVIDERS: PCP Internal Medicine | DX: Z02.79 Encounter for issue of other medical certificate (principal) ==